=== PATIENT | female | born 1945 | race Caucasian/White ===

== ENCOUNTER → 2018-10-03 08:28 | Outpatient (ROUT) | payer SELFPAY ==
[2018-10-03 09:33] LABS: Add Manual Diff / Slide Review NO; Basophils Absolute Auto 0 /uL (0-100); Basophils Percent Auto 0.5 % (0-2); Eosinophils Absolute Auto 200 /uL (0-450); Eosinophils Percent Auto 1.9 % (2-4); Hematocrit 40.1 % (36-46); Hemoglobin 13.3 g/dL (12.0-16.0); Lymphocytes Absolute Auto 2000 /uL (1100-4500); Lymphocytes Percent Auto 20.6 % (25-40); Mean Corpuscular HGB Conc 33.1 % (30-36); Mean Corpuscular Hemoglobin 30.5 PG (26-34); Mean Corpuscular Volume 92.2 fL (80-100); Monocytes Absolute Auto 800 /uL (0-900); Monocytes Percent Auto 8.5 % (3-14); Neutrophils Absolute Auto 6500 /uL (1500-7000); Neutrophils Percent Auto 68.5 % (50-75); Platelet Count 197 X10^3/uL (150-400); Red Blood Cell Count 4.35 X10^6/uL (4.0-5.2); Red Cell Distribution Width 13.8 % (11.6-14.8); White Blood Cell Count 9.5 X10^3/uL (4.5-11.0)
[2018-10-03 09:56] LABS: Blood Urea Nitrogen 27 mg/dL (7-17); Calcium 9.3 mg/dL (8.4-10.2); Carbon Dioxide 26 mmol/L (22-32); Chloride 109 mmol/L (98-107); Estimated Glomerular Filt Rate > 60.0 mL/min (>60); Glucose 150 mg/dL (80-110); HEMOLYSIS < 15 (0-50); Potassium 4.5 mmol/L (3.4-5.1); Sodium 144 mmol/L (137-145)
== END ==
PROVIDERS: Visit Provider Internal Medicine
DX: I63.9 Cerebral infarction, unspecified (principal)
CPT/HCPCS: 36415; 80048; 85025

== ENCOUNTER → 2018-10-10 09:09 | Outpatient (ROUT) | payer SELFPAY ==
[2018-10-10 11:20] LABS: Add Manual Diff / Slide Review NO; Basophils Absolute Auto 100 /uL (0-100); Basophils Percent Auto 1.4 % (0-2); Eosinophils Absolute Auto 200 /uL (0-450); Eosinophils Percent Auto 3.2 % (2-4); Hematocrit 39.3 % (36-46); Hemoglobin 13.5 g/dL (12.0-16.0); Lymphocytes Absolute Auto 1900 /uL (1100-4500); Lymphocytes Percent Auto 36.9 % (25-40); Mean Corpuscular HGB Conc 34.2 % (30-36); Mean Corpuscular Hemoglobin 30.7 PG (26-34); Mean Corpuscular Volume 89.7 fL (80-100); Monocytes Absolute Auto 500 /uL (0-900); Monocytes Percent Auto 9.4 % (3-14); Neutrophils Absolute Auto 2600 /uL (1500-7000); Neutrophils Percent Auto 49.1 % (50-75); Platelet Count 185 X10^3/uL (150-400); Red Blood Cell Count 4.38 X10^6/uL (4.0-5.2); Red Cell Distribution Width 13.5 % (11.6-14.8); White Blood Cell Count 5.2 X10^3/uL (4.5-11.0)
[2018-10-10 11:21] LABS: Blood Urea Nitrogen 36 mg/dL (7-17); Calcium 9.9 mg/dL (8.4-10.2); Carbon Dioxide 28 mmol/L (22-32); Chloride 106 mmol/L (98-107); Estimated Glomerular Filt Rate > 60.0 mL/min (>60); Glucose 102 mg/dL (80-110); HEMOLYSIS < 15 (0-50); Potassium 4.6 mmol/L (3.4-5.1); Sodium 143 mmol/L (137-145)
== END ==
PROVIDERS: Visit Provider Internal Medicine
DX: I63.9 Cerebral infarction, unspecified (principal); R53.1 Weakness; C18.9 Malignant neoplasm of colon, unspecified; J44.9 Chronic obstructive pulmonary disease, unspecified
CPT/HCPCS: 36415; 80048; 85025

== ENCOUNTER 2018-11-13 09:21 | Observation (INO) | payer MEDICARE, MEDICAID, SELFPAY ==
[2018-11-13] VITALS (13 sets, daily range): BP systolic 108–154; BP diastolic 60–76; PULSE 73–87; RESP 13–20; TEMP 35.9–36.9; O2SAT 94–100; BMI 22.8
--- NOTE | 2018-11-13 09:33 | ED_ITS ---
HPI - Nausea/Vomiting/Diarrhea General Chief complaint: Nausea/Vomiting/Diarrhea Stated complaint: Diarrhea, coffee ground emesis Time Seen by Provider: 11/13/18 09:23 Source: patient and EMS Mode of arrival: EMS Limitations: no limitations History of Present Illness HPI Narrative: 73F former smoker/drinker with recent stroke presents from local SNF for evaluation of diarrhea and coffee ground emesis today with some generalized abdominal discomfort. She was started on Plavix as a consequence of her recent stroke. She denies any history of GI bleeding and has never had any EGD. She denies any bright red emesis or dark tarry stools. She is not dizzy nor weak or lightheaded but generally feels unwell. She denies any fever chills nor chest pain. Her stroke left her with a left-sided deficit. She was seen and evaluated at [facility]. During this visit she was apparently on C Diff precautions but was never able to produce a sample MD complaint: nausea, vomiting, diarrhea and abdominal pain Onset (ago): hour(s) Description of Vomiting: coffee grounds Description of Diarrhea: watery Associated Abdominal Pain: Yes Location of pain: diffuse Severity: moderate Quality: cramping Relieving factors: none Exacerbating factors: none Context: alcohol abuse and other Related Data Home Medications Medication Instructions Recorded Confirmed dextran 70-hypromellose (PF) 1 drp EYE-BOTH QID 11/13/18 11/13/18 [Artificial Tears (PF)] escitalopram oxalate 10 mg PO DAILY 11/13/18 11/13/18 mirtazapine 15 mg PO DAILY 11/13/18 11/13/18 Allergies Allergy/AdvReac Type Severity Reaction Status Date / Time codeine Allergy Verified 11/13/18 09:42 ibuprofen Allergy Verified 11/13/18 09:42 oxycodone Allergy Verified 11/13/18 09:42 pseudoephedrine Allergy Verified 11/13/18 09:42 [From Sudafed] Sulfa (Sulfonamide Allergy Verified 11/13/18 09:42 Antibiotics) Review of Systems Constitutional Denies chills, Denies fever(s), Denies lethargy and Denies weakness Eyes Denies change in vision, Denies eye discharge, Denies irritation and Denies loss of vision ENT Ears, Nose, Mouth, and Throat: Denies change in voice, Denies neck pain and Denies sore throat Cardiovascular Denies chest pain, Denies irregular heart rhythm, Denies lightheadedness, Denies palpitations, Denies dyspnea, Denies dyspnea on exertion and Denies orthopnea Respiratory Denies cough, Denies dyspnea, Denies dyspnea on exertion and Denies wheezing Gastrointestinal Gastrointestinal: Reports abdominal pain, Denies change in bowel habits, Reports coffee ground emesis, Reports diarrhea, Reports nausea and Reports vomiting Genitourinary Denies hematuria, Denies flank pain, Denies urinary incontinence and Denies urinary urgency Musculoskeletal Denies neck pain Integumentary/Breasts Denies pruritus, Denies erythema, Denies rash and Denies wounds Neurologic Denies confusion, Denies loss of vision and Denies weakness Psychiatric Denies anxiety, Denies confusion, Denies depression, Denies homicidal ideation and Denies suicidal ideation Endocrine Denies palpitations Hematologic/Lymphatic Denies easy bruising Allergic/Immunologic Denies wheezing [facility] Medical History (Updated 11/13/18 @ 11:00 by Abebe Trejo DO) Stroke (Acute) Social History (Updated 11/13/18 @ 09:39 by Abebe Trejo DO) Smoking Status: Former smoker alcohol intake: former Social History (Updated 11/13/18 @ 09:39 by Abebe Trejo DO) Smoking Status: Former smoker alcohol intake: former Exam Narrative Exam Narrative: GENERAL: [73] year old patient appears stated age. Well- nourished, well-developed patient, in mild distress. HEAD: Atraumatic. Normocephalic. EYES: Pupils equal round and reactive. Extraocular motions intact. No scleral icterus. No injection or drainage. ENT: Dry mucous membranes. Nose without bleeding, purulent drainage. Throat without erythema, tonsillar hypertrophy or exudate. Airway patent. NECK: Trachea midline. Non tender CARDIOVASCULAR: Regular rate and rhythm without murmurs, gallops, or rubs. RESPIRATORY: Clear to auscultation. Breath sounds equal bilaterally. No wheezes, rales, or rhonchi. GASTROINTESTINAL: Abdomen soft, non-tender, nondistended. EXTREMITIES: No edema or joint tenderness. Left upper and lower extremity weakness BACK: Nontender without deformity or crepitance. No flank tenderness. NEURO: AOx3. SKIN: No rash or erythema of visible areas Initial Vital Signs Initial Vital Signs: Vital Signs Temperature 97.3 F L 11/13/18 09:26 Pulse Rate 87 11/13/18 09:26 Respiratory Rate 17 11/13/18 09:26 Blood Pressure 154/70 H 11/13/18 09:26 Pulse Oximetry 100 11/13/18 09:26 Course Course Narrative: Sparks-Blatchford Bleeding Score (GBS) from [email or web address] on 11/13/2018 All calculations should be rechecked by clinician prior to use RESULT SUMMARY: 4 points A GBS greater than zero suggests a ?High Risk? GI bleed that is likely to require ?medical intervention?: transfusion, endoscopy, or surgery. A higher GBS also correlated with a higher likelihood of needing intervention (scores ?6 are associated with >50% risk of needing intervention) INPUTS: Hemoglobin ?> 13.9 g/dL BUN ?> 28 mg/dL Initial systolic BP ?> 125 mm Hg Sex ?> 1 = Female Heart rate ?100 ?> 0 = No Melena present ?> 0 = No Recent syncope ?> 0 = No Hepatic disease history ?> 0 = No Cardiac failure present ?> 0 = No Orders Ordered: ED Orders 11/13/18 09:15 Complete Blood Count AUTO DIFF Stat Comprehensive Metabolic Panel Stat Partial Thromboplastin Time Stat Prothrombin Time INR Stat 11/13/18 09:23 GI Panel (Film Array) Stat 11/13/18 09:25 Type and Screen Stat Sodium Chloride (Normal Saline 0.9%) 500 mls @ 1,000 mls/hr IV BOLUS ONE Stop: 11/13/18 11:18 Last Admin: 11/13/18 10:56 Dose: 1,000 mls/hr Discontinued Medications Ondansetron HCl (Zofran) 4 mg IV NOW ONE Stop: 11/13/18 09:24 Last Admin: 11/13/18 09:39 Dose: 4 mg Pantoprazole Sodium (Protonix) 80 mg IV NOW ONE Stop: 11/13/18 09:24 Last Admin: 11/13/18 09:39 Dose: 80 mg Reevaluation(s) Reevaluation #1: call to Dr. Bangura regarding likely upcoming EGD. He is happy to be involved in patient's care, suggests PPI drip and asks for official consult from medicine service Reevaluation #2: call to hospitalist. happy to accept Time: 10:50 Vital Signs - 8 hr 11/13/18 09:26 11/13/18 09:55 11/13/18 10:10 Temperature 97.3 F L Pulse Rate 87 85 85 Respiratory Rate 17 15 13 Blood Pressure 154/70 H Blood Pressure [Left Arm] 152/65 H 139/60 Pulse Oximetry 100 97 97 11/13/18 10:59 Temperature Pulse Rate 83 Respiratory Rate 15 Blood Pressure Blood Pressure [Left Arm] 125/69 Pulse Oximetry 96 MDM - Nausea/Vomiting/Diarrhea Lab Data Result diagrams: 11/13/18 09:15 11/13/18 09:15 Lab Results 11/13/18 11/13/18 11/13/18 Range/Units 09:15 09:15 09:15 WBC 8.0 (4.5-11.0) X10^3/uL RBC 4.41 (4.0-5.2) X10^6/uL Hgb 13.5 (12.0-16.0) g/dL Hct 39.4 (36-46) % MCV 89.2 (80-100) fL MCH 30.5 (26-34) PG MCHC 34.2 (30-36) % RDW 14.1 (11.6-14.8) % Plt Count 200 (150-400) X10^3/uL Neut % (Auto) 66.9 (50-75) % Lymph % (Auto) 20.3 L (25-40) % Stevens % (Auto) 10.4 (3-14) % Eos % (Auto) 1.8 L (2-4) % Baso % (Auto) 0.6 (0-2) % Neut # (Auto) 5300 (0887-4718) /uL Lymph # (Auto) 1600 (2878-3476) /uL Stevens # (Auto) 800 (0-900) /uL Eos # (Auto) 100 (0-450) /uL Baso # (Auto) 0 (0-100) /uL PT 10.7 (10.1-12.7) SECONDS INR 0.9 (0.9-1.3) APTT 33 (26.4-36.2) SECONDS Sodium 141 (137-145) mmol/L Potassium 4.1 (3.4-5.1) mmol/L Chloride 107 (98-107) mmol/L Carbon Dioxide 24 (22-32) mmol/L BUN 31 H (7-17) mg/dL Creatinine 1.10 H (0.52-1.04) mg/dL Estimated GFR 48.8 L (>60) mL/min BUN/Creatinine Ratio 28.2 H (6-22) Glucose 97 (80-110) mg/dL Calcium 9.9 (8.4-10.2) mg/dL Total Bilirubin 0.5 (0.2-1.3) mg/dL AST 52 H (14-36) IU/L ALT 75 H (9-52) IU/L Alkaline Phosphatase 90 (38-126) U/L Total Protein 6.8 (6.3-8.2) g/dL Albumin 4.1 (3.5-5.0) g/dL Globulin 2.7 (1.7-4.1) g/dL Albumin/Globulin Ratio 1.5 (1.0-2.8) Blood Type Antibody Screen 11/13/18 Range/Units 09:25 WBC (4.5-11.0) X10^3/uL RBC (4.0-5.2) X10^6/uL Hgb (12.0-16.0) g/dL Hct (36-46) % MCV (80-100) fL MCH (26-34) PG MCHC (30-36) % RDW (11.6-14.8) % Plt Count (150-400) X10^3/uL Neut % (Auto) (50-75) % Lymph % (Auto) (25-40) % Stevens % (Auto) (3-14) % Eos % (Auto) (2-4) % Baso % (Auto) (0-2) % Neut # (Auto) (0615-9236) /uL Lymph # (Auto) (4556-6754) /uL Stevens # (Auto) (0-900) /uL Eos # (Auto) (0-450) /uL Baso # (Auto) (0-100) /uL PT (10.1-12.7) SECONDS INR (0.9-1.3) APTT (26.4-36.2) SECONDS Sodium (137-145) mmol/L Potassium (3.4-5.1) mmol/L Chloride (98-107) mmol/L Carbon Dioxide (22-32) mmol/L BUN (7-17) mg/dL Creatinine (0.52-1.04) mg/dL Estimated GFR (>60) mL/min BUN/Creatinine Ratio (6-22) Glucose (80-110) mg/dL Calcium (8.4-10.2) mg/dL Total Bilirubin (0.2-1.3) mg/dL AST (14-36) IU/L ALT (9-52) IU/L Alkaline Phosphatase (38-126) U/L Total Protein (6.3-8.2) g/dL Albumin (3.5-5.0) g/dL Globulin (1.7-4.1) g/dL Albumin/Globulin Ratio (1.0-2.8) Blood Type O Positive Antibody Screen Negative Discharge Plan Departure Patient Disposition: Admitted as Observation Clinical Impression: Dehydration, Acute GI bleeding
[2018-11-13 09:38] LABS: Add Manual Diff / Slide Review NO; Basophils Absolute Auto 0 /uL (0-100); Basophils Percent Auto 0.6 % (0-2); Eosinophils Absolute Auto 100 /uL (0-450); Eosinophils Percent Auto 1.8 % (2-4); Hematocrit 39.4 % (36-46); Hemoglobin 13.5 g/dL (12.0-16.0); Lymphocytes Absolute Auto 1600 /uL (1100-4500); Lymphocytes Percent Auto 20.3 % (25-40); Mean Corpuscular HGB Conc 34.2 % (30-36); Mean Corpuscular Hemoglobin 30.5 PG (26-34); Mean Corpuscular Volume 89.2 fL (80-100); Monocytes Absolute Auto 800 /uL (0-900); Monocytes Percent Auto 10.4 % (3-14); Neutrophils Absolute Auto 5300 /uL (1500-7000); Neutrophils Percent Auto 66.9 % (50-75); Platelet Count 200 X10^3/uL (150-400); Red Blood Cell Count 4.41 X10^6/uL (4.0-5.2); Red Cell Distribution Width 14.1 % (11.6-14.8)
[2018-11-13] MEDS: PANTOPRAZOLE 40 MG VIAL 80 MG IV (09:39)
[2018-11-13] MEDS: ONDANSETRON 4 MG/2 ML INJ IV (09:39)
[2018-11-13 09:44] LABS: INR 0.9 (0.9-1.3); Prothrombin Time 10.7 SECONDS (10.1-12.7)
[2018-11-13 09:47] LABS: PTT Partial Thromboplastin Tim 33 SECONDS (26.4-36.2)
[2018-11-13 09:49] LABS: Alanine Aminotransferase 75 IU/L (9-52); Albumin 4.1 g/dL (3.5-5.0); Albumin Globulin Ratio 1.5 (1.0-2.8); Alkaline Phosphatase 90 U/L (38-126); Aspartate Aminotransferase 52 IU/L (14-36); BUN Creatinine Ratio 28.2 (6-22); Bilirubin Total 0.5 mg/dL (0.2-1.3); Blood Urea Nitrogen 31 mg/dL (7-17); Calcium 9.9 mg/dL (8.4-10.2); Carbon Dioxide 24 mmol/L (22-32); Chloride 107 mmol/L (98-107); Estimated Glomerular Filt Rate 48.8 mL/min (>60); Globulin 2.7 g/dL (1.7-4.1); Glucose 97 mg/dL (80-110); HEMOLYSIS < 15 (0-50); Potassium 4.1 mmol/L (3.4-5.1); Sodium 141 mmol/L (137-145); Total Protein 6.8 g/dL (6.3-8.2)
[2018-11-13] MEDS: SODIUM CHLORIDE 0.9% 500 ML 1000 ML IV (10:56)
[2018-11-13] MEDS: SODIUM CHLORIDE 0.9% 1,000 ML 75 ML IV (12:48)
[2018-11-13 12:54] LABS: Adenovirus F 40/41 Not Detected (Not Detect); Astrovirus Not Detected (Not Detect); Campylobacter Not Detected (Not Detect); Clostridium difficile toxin AB Not Detected (Not Detect); Cryptosporidium Not Detected (Not Detect); Cyclospora cayetanensis Not Detected (Not Detect); Entamoeba histolytica Not Detected (Not Detect); Enteroaggregative E.coli Not Detected (Not Detect); Enteropathogenic E.coli Not Detected (Not Detect); Enterotoxigenic E.coli It/st Not Detected (Not Detect); Giardia lamblia Not Detected (Not Detect); Norovirus GI/GII Not Detected (Not Detect); Plesiomonsa shigelloides Not Detected (Not Detect); Rotavirus A Not Detected (Not Detect); Salmonella Not Detected (Not Detect); Shiga-like toxin-prod E.coli Not Detected (Not Detect); Shigella/Enteroinvasive E.coli Not Detected (Not Detect); Vibrio Not Detected (Not Detect); Vibrio cholerae Not Detected (Not Detect); Yersinia enterocolitica Not Detected (Not Detect)
--- NOTE | 2018-11-13 14:10 | PM.HP.1 ---
History of Present Illness Date Patient Seen: 11/13/18 Chief complaint: Diarrhea, coffee ground emesis Narrative: Savana Chen is a 73-year-old female with a past medical history significant for multiple and recent (09/06/18) CVA with residual left-sided hemiparesis, dysphagia, and dementia; diabetes mellitus type 2, insulin using, depression, COPD, and peptic ulcer disease who presented for nausea, vomiting, diarrhea, and 1 episode of coffee-ground emesis. Due to the patients dementia the patient is a poor historian so the majority of the HPI was gathered from her daughter. The patient's daughter reports that in September she had a massive CVA with residual left-sided hemiparesis in [place] at [facility]. She had previously been on aspirin for previous CVA and Plavix was added in addition. She has been at [facility] for a trial of rehabilitation as her daughter lives here in [place]. The patient's daughter reports that she has slowly declined since her CVA in September. She has a poor appetite and decreased PO intake, she has dysphagia due to CVA requiring thickened liquids which she significantly dislikes, she has lost a significant amount of weight since her CVA of approximately 10-15 lbs, she has failed rehabilitation and is now bed bound. Due to her circumstances the patient has been quite depressed and was recently started on escitalopram and mirtazapine. Her daughter has discussed hospice and obtained an informational visit recently. The patient has also been having reportedly intermittent nausea, vomiting and diarrhea over the last 3 weeks. The patient reports that she has been recently started on metformin with titration up to a 1000 mg twice daily. GI panel in the ED was negative for infectious diarrhea. This morning she had an episode of coffee ground emesis prompting her to be taken to the ED. Her hemoglobin and hematocrit are stable and unchanged compared to 1 month ago. She denies headache, chest pain, shortness of breath, abdominal pain, epigastric pain, nausea, vomiting, fever, chills, dysuria, or constipation. She endorses chronic constipation all her life but now has had loose stool recently with intermittent nausea and vomiting. She is unable to tell me the frequency of her bowel movements or emesis. She has had no recurrence of coffee-ground emesis. Patient was admitted for observation. [facility] was contacted and the nurse reports that the patient had loose watery stool on 8/5-11/09. She was then given Imodium and did not have a bowel movement for 2 days on 11/10 and 11/11. She then had 3 loose watery BM's on 11/12 and 1 loose BM today 11/13. She also had the episode of coffee ground emesis this morning. In regard to vomitting the patient had a couple episodes on 11/07-11/09 but minimal. Patient History Medical History (Updated 11/13/18 @ 16:51 by Yvette Gonzalez DO) Abnormal colonoscopy (Acute) Alcoholism in remission (Acute) CVA (cerebral vascular accident) (Acute) Colon polyps (Acute) Dementia (Acute) Diabetes mellitus type 2 in nonobese (Acute) Dysphagia as late effect of cerebrovascular accident (CVA) (Acute) Gout (Acute) Hard of hearing (Acute) Hemiparesis affecting left side as late effect of cerebrovascular accident (CVA) (Acute) Peptic ulcer disease (Acute) Stroke (Acute) TIA (transient ischemic attack) (Acute) Tobacco dependence (Acute) Surgical History (Updated 11/13/18 @ 14:50 by Yvette Gonzalez DO) H/O hysterectomy with oophorectomy (Acute) History of back surgery (Acute) Family History (Updated 11/13/18 @ 14:55 by Yvette Gonzalez DO) Mother Alcoholism Father No problems noted. Brother Stomach cancer Sister Heart attack Social History (Updated 11/13/18 @ 09:39 by Abebe Trejo DO) household members: other Smoking Status: Former smoker alcohol intake: former Family & Social History Social History: household members family,children Prior Living Arrangements House Safety & Behavioral: Feels Safe in Current Yes Environment Been Physically Hurt or No Threatened By a Person Suicidal Ideation Description None Suicide Plan Description No Plan Tobacco & Substance use: Smoking Status Former smoker, 1 ppd x 56 years, quit 09/06/18 due to CVA alcohol intake former alcoholic, quit 15 years ago Substance Use Type does not use Meds Home Medications Medication Instructions Recorded Confirmed Type Artificial Tears (PF) 1 drp EYE-BOTH QID 11/13/18 11/13/18 History Fleet Enema 118 ml VA DAILY PRN 11/13/18 11/13/18 History Lantus Solostar U-100 Insulin 14 units SUBCUT DAILY 11/13/18 11/13/18 History Maalox Maximum Strength 15 ml PO Q4-6H PRN 11/13/18 11/13/18 History acetaminophen 650 mg PO Q4H PRN 11/13/18 11/13/18 History atorvastatin 80 mg PO BEDTIME 11/13/18 11/13/18 History benzonatate 200 mg PO TID PRN 11/13/18 11/13/18 History bisacodyl 10 mg VA DAILY PRN 11/13/18 11/13/18 History bisacodyl [Dulcolax (bisacodyl)] 10 mg PO PRN PRN 11/13/18 11/13/18 History calcium carbonate [Tums] 200 mg PO PRN PRN 11/13/18 11/13/18 History carvedilol 1.5625 mg PO BID 11/13/18 11/13/18 History clopidogrel 75 mg PO DAILY 11/13/18 11/13/18 History colchicine 0.6 mg PO BID 11/13/18 11/13/18 History cyclobenzaprine 10 mg PO BID PRN 11/13/18 11/13/18 History dextrose [Glucose Gel] 15 g PO Q15M PRN 11/13/18 11/13/18 History docusate sodium 100 mg PO PRN PRN 11/13/18 11/13/18 History escitalopram oxalate 10 mg PO DAILY 11/13/18 11/13/18 History glipizide 5 mg PO DAILY 11/13/18 11/13/18 History ipratropium-albuterol 3 ml INHALATION Q4-6H PRN 11/13/18 11/13/18 History magnesium hydroxide [Milk of 30 ml PO BEDTIME PRN 11/13/18 11/13/18 History Magnesia] melatonin 3 mg PO BEDTIME PRN 11/13/18 11/13/18 History mirtazapine 15 mg PO DAILY 11/13/18 11/13/18 History ondansetron 4 mg PO Q4-6H PRN 11/13/18 11/13/18 History polyethylene glycol 3350 17 g PO DAILY PRN 11/13/18 11/13/18 History ranitidine HCl 150 mg PO BID 11/13/18 11/13/18 History sennosides [senna] 8.6 mg PO DAILY PRN 11/13/18 11/13/18 History metoclopramide HCl 5 mg PO TID PRN #90 tab 11/14/18 Rx nicotine 7 mg TOPICAL DAILY #30 ea 11/14/18 Rx pantoprazole 40 mg PO BID #60 tab 11/14/18 11/13/18 Rx Allergies Allergy/AdvReac Type Severity Reaction Status Date / Time codeine Allergy Verified 11/13/18 09:42 ibuprofen Allergy Verified 11/13/18 09:42 oxycodone Allergy Verified 11/13/18 09:42 pseudoephedrine Allergy Verified 11/13/18 09:42 [From Sudafed] Sulfa (Sulfonamide Allergy Verified 11/13/18 09:42 Antibiotics) Review of Systems Review of Systems A 10 system comprehensive review of systems was conducted with the patient and found to be negative except as above in the History of Present Illness. Exam Vital Signs (past 8 hours): - 11/13/18 09:26 11/13/18 09:55 11/13/18 10:10 Temperature 97.3 F L Pulse Rate 87 85 85 Respiratory Rate 17 15 13 Blood Pressure 154/70 H Blood Pressure [Left Arm] 152/65 H 139/60 Pulse Oximetry 100 97 97 11/13/18 10:59 11/13/18 11:32 11/13/18 11:41 Temperature 96.6 F L Pulse Rate 83 74 73 Respiratory Rate 15 17 16 Blood Pressure 143/75 H Blood Pressure [Left Arm] 125/69 139/62 Pulse Oximetry 96 96 94 Oxygen Delivery Method Room Air Narrative Exam Narrative: General: Elderly thin female sitting in bed comfortably and in no acute distress, appears older than stated age, moderate dementia with short-term memory recall deficit but otherwise appropriately interactive. HEENT: Normocephalic, atraumatic. External ears without defect. Pupils equal, round, and reactive to light. Anicteric sclerae, moist conjunctivae, and no lid lag. Oropharynx free of erythema and cobble stoning. Oral mucosa dry. Hard of hearing Neck: Supple with full range of motion. No jugular venous distension. No bruits. No lymphadenopathy or thyromegaly. Cardiovascular: Regular rate and rhythm without murmurs, rubs, or gallops appreciated. Pulmonary: Clear to auscultation bilaterally without crackles, wheezes, or rhonchi. Normal respiratory effort with no use of accessory muscles. Abdomen: Soft, bowel sounds present, non-tender other than mild suprapubic tenderness, non-distended. No hepatosplenomegaly or masses appreciated. Extremities: No clubbing, cyanosis, or edema. Skin: Normal temperature and texture, poor turgor; no rash, ulcers, or subcutaneous nodules appreciated. Neurological: Chronic left sided hemiparesis with intact sensation. Psychiatric: Depressed mood and flat affect. Alert and oriented to person and place. Moderate dementia with short-term memory recall deficit. Objective Labs Result Diagrams: 11/14/18 09:15 11/14/18 09:15 Labs: Laboratory Results - last 24 hr 11/13/18 11/13/18 11/13/18 09:15 09:15 09:15 WBC 8.0 RBC 4.41 Hgb 13.5 Hct 39.4 MCV 89.2 MCH 30.5 MCHC 34.2 RDW 14.1 Plt Count 200 Neut % (Auto) 66.9 Lymph % (Auto) 20.3 L Jerome % (Auto) 10.4 Eos % (Auto) 1.8 L Baso % (Auto) 0.6 Neut # (Auto) 5300 Lymph # (Auto) 1600 Jerome # (Auto) 800 Eos # (Auto) 100 Baso # (Auto) 0 PT 10.7 INR 0.9 APTT 33 Sodium 141 Potassium 4.1 Chloride 107 Carbon Dioxide 24 BUN 31 H Creatinine 1.10 H Estimated GFR 48.8 L BUN/Creatinine Ratio 28.2 H Glucose 97 Calcium 9.9 Total Bilirubin 0.5 AST 52 H ALT 75 H Alkaline Phosphatase 90 Total Protein 6.8 Albumin 4.1 Globulin 2.7 Albumin/Globulin Ratio 1.5 Stl C. cayetanensis PCR Stool Rotavirus (PCR) Stool Adenovirus (PCR) Stool Astrovirus (PCR) Stool Cryptosporidium PCR Stl E.coli Shiga Tox PCR St Sh/Enteroin Ecoli PCR Stool E coli O157 PCR Stl Enterotoxigenic E PCR Stool EPEC (PCR) Stl E. histolytica PCR Stool Giardia Lamblia PCR Stl P. shigelloides PCR St Y.enterocolitica PCR Stool Vibrio (PCR) Stl Vibrio cholerae PCR Stl Enteroaggr Ecoli PCR Stl Norovirus GI/GII PCR Campylobacter (PCR) C. difficile Tox (PCR) Salmonella (PCR) Blood Type Antibody Screen 08/11/19 08/11/19 09:25 11:27 WBC RBC Hgb Hct MCV MCH MCHC RDW Plt Count Neut % (Auto) Lymph % (Auto) Jerome % (Auto) Eos % (Auto) Baso % (Auto) Neut # (Auto) Lymph # (Auto) Jerome # (Auto) Eos # (Auto) Baso # (Auto) PT INR APTT Sodium Potassium Chloride Carbon Dioxide BUN Creatinine Estimated GFR BUN/Creatinine Ratio Glucose Calcium Total Bilirubin AST ALT Alkaline Phosphatase Total Protein Albumin Globulin Albumin/Globulin Ratio Stl C. cayetanensis PCR Not detected Stool Rotavirus (PCR) Not detected Stool Adenovirus (PCR) Not detected Stool Astrovirus (PCR) Not detected Stool Cryptosporidium PCR Not detected Stl E.coli Shiga Tox PCR Not detected St Sh/Enteroin Ecoli PCR Not detected Stool E coli O157 PCR Not Reportable Stl Enterotoxigenic E PCR Not detected Stool EPEC (PCR) Not detected Stl E. histolytica PCR Not detected Stool Giardia Lamblia PCR Not detected Stl P. shigelloides PCR Not detected St Y.enterocolitica PCR Not detected Stool Vibrio (PCR) Not detected Stl Vibrio cholerae PCR Not detected Stl Enteroaggr Ecoli PCR Not detected Stl Norovirus GI/GII PCR Not detected Campylobacter (PCR) Not detected C. difficile Tox (PCR) Not detected Salmonella (PCR) Not detected Blood Type O Positive Antibody Screen Negative Assessment & Plan Assessment & Plan narrative: Savana Chen is a 73-year-old female with a past medical history significant for multiple and recent (09/06/18) CVA with residual left-sided hemiparesis, dysphagia, and dementia; diabetes mellitus type 2, insulin using, depression, COPD, and peptic ulcer disease who presented for nausea, vomiting, diarrhea, and 1 episode of coffee-ground emesis. 1. Episode of coffee-ground emesis, not present on admission. Active. -Patient has had occasional episode of nausea and vomiting at group home facility and per nursing staff it has been minimal in quantity. The patient had one episode of coffee ground emesis prior to admission. No history of previous GI bleed or previous coffee ground emesis, hematemesis, hematochezia, or melena. Patient is currently on NSAIDs with aspirin and meloxicam daily. In addition to aspirin she is also on Plavix for stroke prophylaxis which increases her risk of bleeding. -Initial hemoglobin 13.5 and hematocrit 39.4 which is unchanged from baseline 1 month ago. -Differential diagnosis includes: Gastritis versus NSAID induced PUD versus gastroparesis versus Oxana-Somers tear versus non-bloody emesis. -Ordered respiratory viral PCR, pending. -Ordered H. pylori stool antigen which are send out tests and will take several days to return. -Continue to monitor closely for nausea and vomiting. Ordered Zofran 4 mg IV every 6 hours as needed for nausea. -Continue to monitor hemoglobin and hematocrit closely. -Discontinued aspirin and meloxicam. Held Plavix and plan to restart Plavix for stroke prophylaxis if patient is stable and does not have any signs of bleeding. -Continue IV fluids for mild dehydration with normal saline at 75 mL/hr and will expect blood counts to decrease to some degree. -Ordered Protonix 40 mg twice daily and ranitidine 150 mg twice daily. -Ordered nuclear medicine gastric emptying study, pending. 2. Acute diarrhea, present on admission. Active. -Patient reports 3 weeks of nausea, vomiting, and diarrhea, however, she is a poor historian [facility] has had several episodes of loose stool over the last 1 week. -Patient has not had substantial GI losses as her electrolytes are within normal limits and at the higher end of normal. Also of note, the patient reports chronic constipation her life making encoparesis a possibility. -Differential diagnosis includes: Drug-induced from metformin (recently titrating up) versus encoparesis. Less likely cause would be ova and parasite. Infectious diarrhea ruled out. -GI stool panel negative for infectious diarrhea. -Ordered ova and parasite which is a send out test and will take several days to return. -Ordered Imodium 4 mg every 6 hours as needed for significant loose watery diarrhea. -Ordered KUB to rule out chronic constipation with encopresis. -Held and consider discontinuing metformin indefinitely as this medication has a significant propensity for diarrhea and may be the cause of her diarrhea. 3. Acute kidney injury, present on admission. Active. -Likely prerenal azotemia related to dehydration from decreased PO intake and mild GI losses from nausea, vomiting and diarrhea. -Initial creatinine 1.10. Baseline creatinine 0.80. -Received 1 L NS bolus in ED. Continue IV fluids with normal saline at 75 mL/hr. -Avoid nephrotoxic agents. -Continue to monitor renal function daily. 4. Recent CVA with residual left-sided hemiparesis, dysphagia, and dementia, present on admission. Active. -Patient has been failing to thrive due to recent CVA and has failed rehabilitation and has been losing weight. Patient's daughter is leaning towards comfort care with hospice in the near future. -Ordered PT/OT/ST evaluation and treatment, pending. -Held aspirin and Plavix as above. -Continue atorvastatin 80 mg daily at bedtime. 5. Diabetes mellitus type 2, insulin using, present on admission. Stable. -Unclear baseline glycemic control. Ordered hemoglobin A1c, pending. -Held oral anti hyperglycemics including glipizide and metformin. Consider discontinuing metformin indefinitely as this medication has a significant propensity for diarrhea and may be the cause of her diarrhea. -Continue Lantus 14 units daily. -Continue ACHS blood glucose and low-dose correctional scale. 6. Transaminitis, acuity unclear, present on admission. Stable. -Likely chronic and related to fatty liver. Patient also has a history of alcoholism (quit 15 years ago) with likely alcohol induced injury and underlying disease. -Initial AST 52 and ALT 75, mild elevation. -Continue to monitor LFTs daily. 7. COPD not in acute exacerbation, present on admission. Stable. -Continue as needed DuoNeb every 4-6 hours for shortness of breath. 8. Depression, chronic, present on admission. Stable. -Continue escitalopram 10 mg daily and mirtazapine 15 mg daily at bedtime. 9. GERD, chronic, present on admission. Stable. -Continue Protonix 40 mg twice daily and ranitidine 150 mg twice daily. 10. Tobacco dependence, chronic, present on admission. Stable. -Continue nicotine patch 7 mg daily for nicotine withdrawal. 11. Gout, chronic, present on admission. Stable. -Continue colchicine 0.6 mg twice daily. Patient is admitted under observation status with expected length of stay less than 2 midnights due to severity of presenting symptoms, risk of adverse event, and complexity of treatment plan. Quality VTE Deep Vein Thrombosis/Pulmonary Embolism Present on Admission: No
--- NOTE | 2018-11-13 14:14 | P.HP_ITS ---
History of Present Illness Date Patient Seen: 11/13/18 Chief complaint: Diarrhea, coffee ground emesis Narrative: Savana Chen is a 73-year-old female with a past medical history significant for multiple and recent (09/06/18) CVA with residual left-sided hemiparesis, dysphagia, and dementia; diabetes mellitus type 2, insulin using, depression, COPD, and peptic ulcer disease who presented for nausea, vomiting, diarrhea, and 1 episode of coffee-ground emesis. Due to the patients dementia the patient is a poor historian so the majority of the HPI was gathered from her daughter. The patient's daughter reports that in September she had a massive CVA with residual left-sided hemiparesis in [place] at [facility]. She had previously been on aspirin for previous CVA and Plavix was added in addition. She has been at [facility] for a trial of rehabilitation as her daughter lives here in [place]. The patient's daughter reports that she has slowly declined since her CVA in September. She has a poor appetite and decreased PO intake, she has dysphagia due to CVA requiring thickened liquids which she significantly dislikes, she has lost a significant amount of weight since her CVA of approxim ately 10-15 lbs, she has failed rehabilitation and is now bed bound. Due to her circumstances the patient has been quite depressed and was recently started on escitalopram and mirtazapine. Her daughter has discussed hospice and obtained an informational visit recently. The patient has also been having reportedly intermittent nausea, vomiting and diarrhea over the last 3 weeks. The patient reports that she has been recently started on metformin with titration up to a 1000 mg twice daily. GI panel in the ED was negative for infectious diarrhea. This morning she had an episode of coffee ground emesis prompting her to be taken to the ED. Her hemoglobin and hematocrit are stable and unchanged compared to 1 month ago. She denies headache, chest pain, shortness of breath, abdominal pain, epigastric pain, nausea, vomiting, fever, chills, dysuria, or constipation. She endorses chronic constipation all her life but now has had loose stool recently with intermittent nausea and vomiting. She is unable to tell me the frequency of her bowel movements or emesis. She has had no recurrence of coffee-ground emesis. Patient was admitted for observation. [facility] was contacted and the nurse reports that the patient had loose watery stool on 11/07-11/09. She was then given Imodium and did not have a bowel movement for 2 days on 11/10 and 11/11. She then had 3 loose watery BM's on 11/12 and 1 loose BM today 11/13. She also had the episode of coffee ground emesis this morning. In regard to vomitting the patient had a couple episodes on 11/07- 11/09 but minimal. Patient History Medical History (Updated 11/13/18 @ 16:51 by Yvette Gonzalez DO) Abnormal colonoscopy (Acute) Alcoholism in remission (Acute) CVA (cerebral vascular accident) (Acute) Colon polyps (Acute) Dementia (Acute) Diabetes mellitus type 2 in nonobese (Acute) Dysphagia as late effect of cerebrovascular accident (CVA) (Acute) Gout (Acute) Hard of hearing (Acute) Hemiparesis affecting left side as late effect of cerebrovascular accident (CVA) (Acute) Peptic ulcer disease (Acute) Stroke (Acute) TIA (transient ischemic attack) (Acute) Tobacco dependence (Acute) Surgical History (Updated 11/13/18 @ 14:50 by Yvette Gonzalez DO) H/O hysterectomy with oophorectomy (Acute) History of back surgery (Acute) Family History (Updated 11/13/18 @ 14:55 by Yvette Gonzalez DO) Mother Alcoholism Father No problems noted. Brother Stomach cancer Sister Heart attack Social History (Updated 11/13/18 @ 09:39 by Abebe Trejo DO) household members: other Smoking Status: Former smoker alcohol intake: former Family & Social History Social History: household members family,children Prior Living Arrangements House Safety & Behavioral: Feels Safe in Current Yes Environment Been Physically Hurt or No Threatened By a Person Suicidal Ideation Description None Suicide Plan Description No Plan Tobacco & Substance use: Smoking Status Former smoker, 1 ppd x 56 years, quit 09/06/18 due to CVA alcohol intake former alcoholic, quit 15 years ago Substance Use Type does not use Meds Home Medications Medication Instructions Recorded Confirmed Type Artificial Tears (PF) 1 drp EYE-BOTH QID 11/13/18 11/13/18 History Fleet Enema 118 ml CO DAILY PRN 11/13/18 11/13/18 History Lantus Solostar U-100 Insulin 14 units SUBCUT DAILY 11/13/18 11/13/18 History Maalox Maximum Strength 15 ml PO Q4-6H PRN 11/13/18 11/13/18 History acetaminophen 650 mg PO Q4H PRN 11/13/18 11/13/18 History atorvastatin 80 mg PO BEDTIME 11/13/18 11/13/18 History benzonatate 200 mg PO TID PRN 11/13/18 11/13/18 History bisacodyl 10 mg CO DAILY PRN 11/13/18 11/13/18 History bisacodyl [Dulcolax (bisacodyl)] 10 mg PO PRN PRN 11/13/18 11/13/18 History calcium carbonate [Tums] 200 mg PO PRN PRN 11/13/18 11/13/18 History carvedilol 1.5625 mg PO BID 11/13/18 11/13/18 History clopidogrel 75 mg PO DAILY 11/13/18 11/13/18 History colchicine 0.6 mg PO BID 11/13/18 11/13/18 History cyclobenzaprine 10 mg PO BID PRN 11/13/18 11/13/18 History dextrose [Glucose Gel] 15 g PO Q15M PRN 11/13/18 11/13/18 History docusate sodium 100 mg PO PRN PRN 11/13/18 11/13/18 History escitalopram oxalate 10 mg PO DAILY 11/13/18 11/13/18 History glipizide 5 mg PO DAILY 11/13/18 11/13/18 History ipratropium-albuterol 3 ml INHALATION Q4-6H PRN 11/13/18 11/13/18 History magnesium hydroxide [Milk of 30 ml PO BEDTIME PRN 11/13/18 11/13/18 History Magnesia] melatonin 3 mg PO BEDTIME PRN 11/13/18 11/13/18 History mirtazapine 15 mg PO DAILY 11/13/18 11/13/18 History ondansetron 4 mg PO Q4-6H PRN 11/13/18 11/13/18 History polyethylene glycol 3350 17 g PO DAILY PRN 11/13/18 11/13/18 History ranitidine HCl 150 mg PO BID 11/13/18 11/13/18 History sennosides [senna] 8.6 mg PO DAILY PRN 11/13/18 11/13/18 History metoclopramide HCl 5 mg PO TID PRN #90 tab 11/14/18 Rx nicotine 7 mg TOPICAL DAILY #30 ea 11/14/18 Rx pantoprazole 40 mg PO BID #60 tab 11/14/18 11/13/18 Rx Allergies Allergy/AdvReac Type Severity Reaction Status Date / Time codeine Allergy Verified 11/13/18 09:42 ibuprofen Allergy Verified 11/13/18 09:42 oxycodone Allergy Verified 11/13/18 09:42 pseudoephedrine Allergy Verified 11/13/18 09:42 [From Sudafed] Sulfa (Sulfonamide Allergy Verified 11/13/18 09:42 Antibiotics) Review of Systems Review of Systems A 10 system comprehensive review of systems was conducted with the patient and found to be negative except as above in the History of Present Illness. Exam Vital Signs (past 8 hours): - 11/13/18 09:26 11/13/18 09:55 11/13/18 10:10 Temperature 97.3 F L Pulse Rate 87 85 85 Respiratory Rate 17 15 13 Blood Pressure 154/70 H Blood Pressure [Left Arm] 152/65 H 139/60 Pulse Oximetry 100 97 97 11/13/18 10:59 11/13/18 11:32 11/13/18 11:41 Temperature 96.6 F L Pulse Rate 83 74 73 Respiratory Rate 15 17 16 Blood Pressure 143/75 H Blood Pressure [Left Arm] 125/69 139/62 Pulse Oximetry 96 96 94 Oxygen Delivery Method Room Air Narrative Exam Narrative: General: Elderly thin female sitting in bed comfortably and in no acute distress, appears older than stated age, moderate dementia with short- term memory recall deficit but otherwise appropriately interactive. HEENT: Normocephalic, atraumatic. External ears without defect. Pupils equal, round, and reactive to light. Anicteric sclerae, moist conjunctivae, and no lid lag. Oropharynx free of erythema and cobble stoning. Oral mucosa dry. Hard of hearing Neck: Supple with full range of motion. No jugular venous distension. No bruits. No lymphadenopathy or thyromegaly. Cardiovascular: Regular rate and rhythm without murmurs, rubs, or gallops appr eciated. Pulmonary: Clear to auscultation bilaterally without crackles, wheezes, or rhonchi. Normal respiratory effort with no use of accessory muscles. Abdomen: Soft, bowel sounds present, non-tender other than mild suprapubic tenderness, non-distended. No hepatosplenomegaly or masses appreciated. Extremities: No clubbing, cyanosis, or edema. Skin: Normal temperature and texture, poor turgor; no rash, ulcers, or subcutaneous nodules appreciated. Neurological: Chronic left sided hemiparesis with intact sensation. Psychiatric: Depressed mood and flat affect. Alert and oriented to person and place. Moderate dementia with short-term memory recall deficit. Objective Labs Result Diagrams: 11/14/18 09:15 11/14/18 09:15 Labs: Laboratory Results - last 24 hr 11/13/18 11/13/18 11/13/18 09:15 09:15 09:15 WBC 8.0 RBC 4.41 Hgb 13.5 Hct 39.4 MCV 89.2 MCH 30.5 MCHC 34.2 RDW 14.1 Plt Count 200 Neut % (Auto) 66.9 Lymph % (Auto) 20.3 L O'Brien % (Auto) 10.4 Eos % (Auto) 1.8 L Baso % (Auto) 0.6 Neut # (Auto) 5300 Lymph # (Auto) 1600 O'Brien # (Auto) 800 Eos # (Auto) 100 Baso # (Auto) 0 PT 10.7 INR 0.9 APTT 33 Sodium 141 Potassium 4.1 Chloride 107 Carbon Dioxide 24 BUN 31 H Creatinine 1.10 H Estimated GFR 48.8 L BUN/Creatinine Ratio 28.2 H Glucose 97 Calcium 9.9 Total Bilirubin 0.5 AST 52 H ALT 75 H Alkaline Phosphatase 90 Total Protein 6.8 Albumin 4.1 Globulin 2.7 Albumin/Globulin Ratio 1.5 Stl C. cayetanensis PCR Stool Rotavirus (PCR) Stool Adenovirus (PCR) Stool Astrovirus (PCR) Stool Cryptosporidium PCR Stl E.coli Shiga Tox PCR St Sh/Enteroin Ecoli PCR Stool E coli O157 PCR Stl Enterotoxigenic E PCR Stool EPEC (PCR) Stl E. histolytica PCR Stool Giardia Lamblia PCR Stl P. shigelloides PCR St Y.enterocolitica PCR Stool Vibrio (PCR) Stl Vibrio cholerae PCR Stl Enteroaggr Ecoli PCR Stl Norovirus GI/GII PCR Campylobacter (PCR) C. difficile Tox (PCR) Salmonella (PCR) Blood Type Antibody Screen 11/13/18 11/13/18 09:25 11:27 WBC RBC Hgb Hct MCV MCH MCHC RDW Plt Count Neut % (Auto) Lymph % (Auto) O'Brien % (Auto) Eos % (Auto) Baso % (Auto) Neut # (Auto) Lymph # (Auto) O'Brien # (Auto) Eos # (Auto) Baso # (Auto) PT INR APTT Sodium Potassium Chloride Carbon Dioxide BUN Creatinine Estimated GFR BUN/Creatinine Ratio Glucose Calcium Total Bilirubin AST ALT Alkaline Phosphatase Total Protein Albumin Globulin Albumin/Globulin Ratio Stl C. cayetanensis PCR Not detected Stool Rotavirus (PCR) Not detected Stool Adenovirus (PCR) Not detected Stool Astrovirus (PCR) Not detected Stool Cryptosporidium PCR Not detected Stl E.coli Shiga Tox PCR Not detected St Sh/Enteroin Ecoli PCR Not detected Stool E coli O157 PCR Not Reportable Stl Enterotoxigenic E PCR Not detected Stool EPEC (PCR) Not detected Stl E. histolytica PCR Not detected Stool Giardia Lamblia PCR Not detected Stl P. shigelloides PCR Not detected St Y.enterocolitica PCR Not detected Stool Vibrio (PCR) Not detected Stl Vibrio cholerae PCR Not detected Stl Enteroaggr Ecoli PCR Not detected Stl Norovirus GI/GII PCR Not detected Campylobacter (PCR) Not detected C. difficile Tox (PCR) Not detected Salmonella (PCR) Not detected Blood Type O Positive Antibody Screen Negative Assessment & Plan Assessment & Plan narrative: Savana Chen is a 73-year-old female with a past medical history significant for multiple and recent (09/06/18) CVA with residual left-sided hemiparesis, dysphagia, and dementia; diabetes mellitus type 2, insulin using, depression, COPD, and peptic ulcer disease who presented for nausea, vomiting, diarrhea, and 1 episode of coffee-ground emesis. 1. Episode of coffee-ground emesis, not present on admission. Active. -Patient has had occasional episode of nausea and vomiting at [facility] facility and per nursing staff it has been minimal in quantity. The patient had one episode of coffee ground emesis prior to admission. No history of previous GI bleed or previous coffee ground emesis, hematemesis, hematochezia, or melena. Patient is currently on NSAIDs with aspirin and meloxicam daily. In addition to aspirin she is also on Plavix for stroke prophylaxis which increases her risk of bleeding. -Initial hemoglobin 13.5 and hematocrit 39.4 which is unchanged from baseline 1 month ago. -Differential diagnosis includes: Gastritis versus NSAID induced PUD versus gastroparesis versus Oxana-Somers tear versus non-bloody emesis. -Ordered respiratory viral PCR, pending. -Ordered H. pylori stool antigen which are send out tests and will take several days to return. -Continue to monitor closely for nausea and vomiting. Ordered Zofran 4 mg IV every 6 hours as needed for nausea. -Continue to monitor hemoglobin and hematocrit closely. -Discontinued aspirin and meloxicam. Held Plavix and plan to restart Plavix for stroke prophylaxis if patient is stable and does not have any signs of bleeding. -Continue IV fluids for mild dehydration with normal saline at 75 mL/hr and will expect blood counts to decrease to some degree. -Ordered Protonix 40 mg twice daily and ranitidine 150 mg twice daily. -Ordered nuclear medicine gastric emptying study, pending. 2. Acute diarrhea, present on admission. Active. -Patient reports 3 weeks of nausea, vomiting, and diarrhea, however, she is a poor historian and [facility] has had several episodes of loose stool over the last 1 week. -Patient has not had substantial GI losses as her electrolytes are within normal limits and at the higher end of normal. Also of note, the patient reports chronic constipation her life making encoparesis a possibility. -Differential diagnosis includes: Drug-induced from metformin (recently titrating up) versus encoparesis. Less likely cause would be ova and parasite. Infectious diarrhea ruled out. -GI stool panel negative for infectious diarrhea. -Ordered ova and parasite which is a send out test and will take several days to return. -Ordered Imodium 4 mg every 6 hours as needed for significant loose watery diarrhea. -Ordered KUB to rule out chronic constipation with encopresis. -Held and consider discontinuing metformin indefinitely as this medication has a significant propensity for diarrhea and may be the cause of her diarrhea. 3. Acute kidney injury, present on admission. Active. -Likely prerenal azotemia related to dehydration from decreased PO intake and mild GI losses from nausea, vomiting and diarrhea. -Initial creatinine 1.10. Baseline creatinine 0.80. -Received 1 L NS bolus in ED. Continue IV fluids with normal saline at 75 mL/hr. -Avoid nephrotoxic agents. -Continue to monitor renal function daily. 4. Recent CVA with residual left-sided hemiparesis, dysphagia, and dementia, present on admission. Active. -Patient has been failing to thrive due to recent CVA and has failed rehabilitation and has been losing weight. Patient's daughter is leaning towards comfort care with hospice in the near future. -Ordered PT/OT/ST evaluation and treatment, pending. -Held aspirin and Plavix as above. -Continue atorvastatin 80 mg daily at bedtime. 5. Diabetes mellitus type 2, insulin using, present on admission. Stable. -Unclear baseline glycemic control. Ordered hemoglobin A1c, pending. -Held oral anti hyperglycemics including glipizide and metformin. Consider discontinuing metformin indefinitely as this medication has a significant propensity for diarrhea and may be the cause of her diarrhea. -Continue Lantus 14 units daily. -Continue ACHS blood glucose and low-dose correctional scale. 6. Transaminitis, acuity unclear, present on admission. Stable. -Likely chronic and related to fatty liver. Patient also has a history of alcoholism (quit 15 years ago) with likely alcohol induced injury and underlying disease. -Initial AST 52 and ALT 75, mild elevation. -Continue to monitor LFTs daily. 7. COPD not in acute exacerbation, present on admission. Stable. -Continue as needed DuoNeb every 4-6 hours for shortness of breath. 8. Depression, chronic, present on admission. Stable. -Continue escitalopram 10 mg daily and mirtazapine 15 mg daily at bedtime. 9. GERD, chronic, present on admission. Stable. -Continue Protonix 40 mg twice daily and ranitidine 150 mg twice daily. 10. Tobacco dependence, chronic, present on admission. Stable. -Continue nicotine patch 7 mg daily for nicotine withdrawal. 11. Gout, chronic, present on admission. Stable. -Continue colchicine 0.6 mg twice daily. Patient is admitted under observation status with expected length of stay less than 2 midnights due to severity of presenting symptoms, risk of adverse event, and complexity of treatment plan. Quality VTE Deep Vein Thrombosis/Pulmonary Embolism Present on Admission: No
--- NOTE | 2018-11-13 14:45 | PC.NURSE ---
1205 Pt arrived from ED via stretcher, Ptb is awake, alert, dtr at bedside. 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 Pt is O x 3. slight facial droop left side. Pt came from [facility]. Pt has not voided since noon. Reported she was inc bowel & bladder in the ED. Pt has a brief on, denies nausea. 1415 Stool specimen sent & is neg for infection. 1430 did not recieve the latest med sheet from [facility], case mgmnt Anny will call to get the updated medication information needed from [facility]. Pt allowed to have thin liqs per Pt & family request. PO fluids w/supervision only. Pt at risk of aspiration d/t past CVA. as approved by Dr Gonzalez. SCDs applied ble. IV fluids infusing.
--- NOTE | 2018-11-13 15:05 | PC.NURSE ---
1400 A nicotine patch dated 11/10 was removed from L chest site.
--- NOTE | 2018-11-13 15:12 | CM.DPNOTE ---
DCP note: Alerted by RNs Lauryn and Tracey that pt had just admitted to room 214, that she came from [facility] and they did not receive the usual medication list with time of last dosing noted. They stated that Rhona/[facility] told them this was no longer allowed. [facility]. She confirmed that this was not correct and stated she would have the correct medication list faxed to main nurses station fax. She then called back to say family had arrived to request the order list and was bringing these to the hospital. Confirmed with ELLIOT Combs that they are now here and in the Red Folder/hard copy chart.
[2018-11-13 15:49] LABS: Magnesium 1.8 mg/dL (1.6-2.3)
--- NOTE | 2018-11-13 16:02 | DI.RAD.S_ITS ---
PROCEDURE: XR KUB INDICATIONS: constipation? TECHNIQUE: One view of the abdomen acquired. COMPARISON: None. FINDINGS: Surgical changes and devices: Lumbosacral fixation hardware is seen. Bowel: There is a mild of stool seen within the distal colon. Prominent, yet not frankly dilated loops of small bowel are seen that measure up to 2 cm. Gaseous prominence can be within the colon, with the transverse colon measuring 5 cm. On this supine only study, air-fluid levels are not assessed. Soft tissues: No suspicious abdominal calcifications. Visualized solid organ contours appear normal in size. Bones: No suspicious bony lesions. IMPRESSION: There is a mild amount of stool seen within the distal colon. The gaseous prominence of large and small bowel is most consistent with ileus. If it would be helpful for clinical management decision making, please consider a dedicated CT of the abdomen and pelvis with IV and oral contrast. Dictated by: Chris Allen M.D. on 11/13/2018 at 15:59 Approved by: Chris Allen M.D. on 11/13/2018 at 16:01
[2018-11-13 16:55] LABS: Hemoglobin A1C% w Est Avg Glu 7.5 % (4.0-6.0)
[2018-11-13] MEDS: DEXTROSE 50 % IN WATER 25 GM/50 ML SYRINGE IV (17:22)
--- NOTE | 2018-11-13 17:30 | DI.CT.S_ITS ---
PROCEDURE: CT ABDOMEN PELVIS W CON INDICATIONS: possible ileus, constipation w/ encoparesis, N/V TECHNIQUE: After the administration of oral and intravenous contrast, 5 mm thick sections acquired from the diaphragms to the symphysis. 5 mm thick coronal and sagittal reformats were performed. For radiation dose reduction, the following was used: automated exposure control, adjustment of mA and/or kV according to patient size. COMPARISON: None. FINDINGS: Image quality: Excellent. ABDOMEN: Lung bases: Minimal centrilobular ground glass opacity at the left lung base. This may represent atelectasis or low-grade infectious/inflammatory process. Heart size is normal. Solid organs: Liver is normal in size and enhancement. Gallbladder is absent. Biliary system is non-dilated. Pancreas enhances normally. Spleen is normal in size and enhancement. No adrenal nodules. Kidneys are normal in size. Mild bilateral hydronephrosis and proximal/mid hydroureter. Peritoneum and bowel: There is liquid stool contents in the right colon. No bowel obstruction or significant ileus. No pneumoperitoneum. Nodes and vessels: No retroperitoneal or mesenteric adenopathy. Aorta and inferior vena cava are normal in caliber. Marked atherosclerotic aortoiliac disease. Miscellaneous: No ventral hernias. PELVIS: Genitourinary: Urinary bladder is markedly distended. No obvious mass in the region of the urethra. The uterus is surgically absent. Miscellaneous: No inguinal hernias or adenopathy. Bones: No suspicious bony lesions. L5-S1 pedicle screws and laminectomy. A moderate sized muscular lipoma in the left groin. No vertebral body compression fractures. IMPRESSION: 1. Markedly distended urinary bladder with dilated bilateral proximal/mid ureters and renal collecting systems. Findings are suspicious for bladder outlet obstruction. No obvious mass is identified. 2. No bowel obstruction or significant ileus. Liquid stool contents in the colon suggestive of diarrhea. Comment: Findings were discussed with Dr. Humphreys Hospitalist at the time of dictation. Dictated by: Parmjit Sheth M.D. on 11/13/2018 at 19:28 Approved by: Parmjit Sheth M.D. on 11/13/2018 at 19:46
--- NOTE | 2018-11-13 17:37 | PC.NURSE ---
Noreen shift note: Patient awake, alert, sitting up in bed with HOB elevated while eating dinner 1:1 as per order. BG check 45 mg/dl, upon recheck 51 mg/dl. Administered 25 GM Dextrose AMP IV, at recheck 1735 177 mg/dl. Will continue to monitor closely. Patient is pale, no diaphoresis or dizziness noted. Oriented to self, does not know where she is at (states she is in [place]), unaware of situation or time. Will continue to monitor closely.
[2018-11-13 19:07] LABS: Adenovirus Not Detected (Not Detect); Coronavirus 229E Not Detected (Not Detect); Coronavirus HKU1 Not Detected (Not Detect); Coronavirus NL 63 Not Detected (Not Detect); Coronavirus OC43 Not Detected (Not Detect); Human Metapneumovirus Not Detected (Not Detect); Human Rhinovirus/Enterovirus Not Detected (Not Detect); Influenza A Not Detected (Not Detect); Influenza B Not Detected (Not Detect)
[2018-11-13 19:08] LABS: Bordetella pertussis Not Detected (Not Detect); Chlamydophila pneumoniae Not Detected (Not Detect); Mycoplasma pneumoniae Not Detected (Not Detect); Parainfluenza Virus 1 Not Detected (Not Detect); Parainfluenza Virus 2 Not Detected (Not Detect); Parainfluenza Virus 3 Not Detected (Not Detect); Parainfluenza Virus 4 Not Detected (Not Detect); Respiratory Syncytial Virus Not Detected (Not Detect)
--- NOTE | 2018-11-13 19:10 | PC.NURSE ---
191: OFF floor for CT scan with Michel BELL. Pt. in stable condition.
[2018-11-13 20:24] LABS: Appearance Urine UA CLEAR; Bilirubin Urine UA NEGATIVE (NEGATIVE); Color Urine UA YELLOW; Glucose Urine UA TRACE g/dL (Negative); Ketones Urine UA NEGATIVE (NEGATIVE); Leukocyte Esterase Urine UA NEGATIVE (NEGATIVE); Nitrite Urine UA NEGATIVE (Negative); Occult Blood Urine UA NEGATIVE (Negative); Protein Urine UA NEGATIVE (Negative); Urobilinogen Urine UA 0.2 E.U./dL (0.2)
[2018-11-13 20:32] LABS: Bacteria Urine None Seen; Culture Indicated Urine Cult Not Indicated; Hyaline Casts Urine 1-5/LPF; RBC Urine 0-1/HPF (0-5/HPF); Squamous Epithelial Cell Urine 0-1 /HPF (0-5/HPF); Urine Comments Microscopic Normal; WBC Urine 0-1/HPF (0-5/HPF)
[2018-11-13] MEDS: PANTOPRAZOLE 40 MG VIAL IV (21:10)
[2018-11-14] MEDS: SODIUM CHLORIDE 0.9% 1,000 ML 75 ML IV (04:08)
[2018-11-14 06:00] VITALS: BP 138/61; PULSE 75; RESP 16; TEMP 36.4; O2SAT 100
[2018-11-14 07:40] VITALS: BP 128/66; PULSE 81; RESP 18; TEMP 36.6; O2SAT 100
[2018-11-14 08:02] VITALS: O2SAT 100
[2018-11-14 09:36] LABS: Add Manual Diff / Slide Review NO; Basophils Absolute Auto 0 /uL (0-100); Basophils Percent Auto 0.5 % (0-2); Eosinophils Absolute Auto 100 /uL (0-450); Hematocrit 34.3 % (36-46); Lymphocytes Absolute Auto 1700 /uL (1100-4500); Lymphocytes Percent Auto 24.4 % (25-40); Mean Corpuscular HGB Conc 34.9 % (30-36); Mean Corpuscular Hemoglobin 30.7 PG (26-34); Mean Corpuscular Volume 88.1 fL (80-100); Monocytes Absolute Auto 600 /uL (0-900); Monocytes Percent Auto 9.5 % (3-14); Neutrophils Absolute Auto 4300 /uL (1500-7000); Neutrophils Percent Auto 63.6 % (50-75); Platelet Count 170 X10^3/uL (150-400); Red Cell Distribution Width 14.1 % (11.6-14.8); White Blood Cell Count 6.8 X10^3/uL (4.5-11.0)
[2018-11-14 09:41] LABS: Alanine Aminotransferase 84 IU/L (9-52); Albumin 3.2 g/dL (3.5-5.0); Albumin Globulin Ratio 1.3 (1.0-2.8); Alkaline Phosphatase 73 U/L (38-126); Aspartate Aminotransferase 53 IU/L (14-36); Bilirubin Total 0.4 mg/dL (0.2-1.3); Blood Urea Nitrogen 16 mg/dL (7-17); Calcium 8.9 mg/dL (8.4-10.2); Carbon Dioxide 21 mmol/L (22-32); Chloride 110 mmol/L (98-107); Estimated Glomerular Filt Rate > 60.0 mL/min (>60); Globulin 2.5 g/dL (1.7-4.1); Glucose 86 mg/dL (80-110); HEMOLYSIS < 15 (0-50); Magnesium 1.4 mg/dL (1.6-2.3); Potassium 3.7 mmol/L (3.4-5.1); Sodium 139 mmol/L (137-145); Total Protein 5.7 g/dL (6.3-8.2)
--- NOTE | 2018-11-14 09:51 | PT.IIE ---
Surgical History (Last Updated 11/13/18 @ 14:50 by Yvette Gonzalez DO) H/O hysterectomy with oophorectomy (Acute) History of back surgery (Acute) Medical History (Last Updated 11/13/18 @ 16:51 by Yvette Goznalez DO) Abnormal colonoscopy (Acute) Alcoholism in remission (Acute) CVA (cerebral vascular accident) (Acute) Colon polyps (Acute) Dementia (Acute) Diabetes mellitus type 2 in nonobese (Acute) Dysphagia as late effect of cerebrovascular accident (CVA) (Acute) Gout (Acute) Hard of hearing (Acute) Hemiparesis affecting left side as late effect of cerebrovascular accident (CVA) (Acute) Peptic ulcer disease (Acute) Stroke (Acute) TIA (transient ischemic attack) (Acute) Tobacco dependence (Acute) Physical Therapy Inpatient Evaluation/Re-Eval M1 PT/OT-IP Prior Functional Status Start: 11/14/18 07:47 Freq: NEEDED Status: Active Protocol: Document 11/14/18 11:01 RS (Rec: 11/14/18 11:05 RS [id number]) Medical Review Prior Functional Status Medical History Reviewed Yes Mobility and Gait Per [facility], pt required 1P extensive to dependent assist for all mobility. Prior Functional Level (Other details) At [facility] pt was on thickened liquids, but not clarified as to type. Social History Household Members other Living Arrangements Skilled Nurse Facility Additional Social History Comment Pt has been at [facility] since September after significant CVA w/ L deficits. Dtr lives in [place]. M2 PT-IP Current Condition Start: 11/14/18 07:47 Freq: NEEDED Status: Active Protocol: Document 11/14/18 09:51 RS (Rec: 11/14/18 10:02 RS [id number]) Physical Therapy Current Condition Current Condition Evaluation Date 11/14/18 Treatment Diagnosis L hemiparesis d/t CVA and gross deconditioning Onset Date 11/07/18 M3 PT-IP Subjective Start: 11/14/18 07:47 Freq: NEEDED Status: Active Protocol: Document 11/14/18 09:51 RS (Rec: 11/14/18 10:02 RS [id number]) Subjective Physical Therapy Visit Type Type Initial Evaluation Physical Therapy Visit Comments Patient Comments Pt expresses concern that she doesn't know why she's not at home. Patient Goals to sleep Therapy Pain Assessment Pain When Pain Assessed At Rest Pain Present Pain Present Denied Pain M4 PT-IP Mobility and Gait Start: 11/14/18 07:47 Freq: NEEDED Status: Active Protocol: Document 11/14/18 09:51 RS (Rec: 11/14/18 10:02 RS [id number]) PT-Bed Mobility Assessment Rolling Type of Rolling Bilateral Level of Assist Standby Assistance Minimal Assistance Supine to Sit Supine to Sit Moderate Assistance Sit to Supine Sit to Supine Moderate Assistance M5 PT-IP Objective Assessments Start: 11/14/18 07:47 Freq: NEEDED Status: Active Protocol: Document 11/14/18 09:51 RS (Rec: 11/14/18 10:11 RS [id number]) Orientation Orientation/Cognition Level of Alertness Confusional State Orientation Name Safety Awareness Decreased Safety Awareness Memory Description Short Term Impaired Char Puller Impaired Comments Pt slow to answer but able to hold a simple conversation, a little anxious, didn't know where she was, why she was here, also didn't know where she was prior to the admit, didn't realize she had had a stroke Gross Range of Motion Lower Extremity ROM Assessment Within Functional Limits Strength Lower Extremity Strength Assessment Left Impaired Comments Strength Comments L hemiparesis from CVA M6 PT-IP Treatment Start: 11/14/18 07:47 Freq: NEEDED Status: Active Protocol: Document 11/14/18 11:01 RS (Rec: 11/14/18 11:05 [id number]) Physical Therapy Treatment Education Education Provided Safety M7 PT-IP Assessment and Plan Start: 11/14/18 07:47 Freq: NEEDED Status: Active Protocol: Document 11/14/18 11:01 RS (Rec: 11/14/18 11:05 [id number]) PT Summary Assessment and Plan Potential Rehabilitation Potential Fair Status of Condition at Evaluation Stable Summary Impairments Strength Balance Coordination Cognition Bed Mobility Transfers Gait Activity Tolerance Assessment Summary Pt presents with residual L hemiparesis from CVA in September 2018. On top of this pt seems to also present with gross weakness/deconditioning related to limited intake with several days of diarrhea. Pt does have potential for functional improvement and will continue to benefit from further subacute PT/OT/CERTIFIED REGISTERED NURSE PRACTITIONER at SNF rehab. Pt to discharge back later today, acute PT will sign off. Frequency of Treatment Frequency Of Treatment Discharge Recommendations To Nursing Amount of Assist Needed 2 Person Assist Discharge Recommendations PT Discharge Recommendations SNF Rehab
[2018-11-14] MEDS: METOCLOPRAMIDE HCL 5 MG TABLET PO (10:31)
[2018-11-14] MEDS: PANTOPRAZOLE 40 MG VIAL IV (10:37)
[2018-11-14 11:00] VITALS: BP 122/73; PULSE 83; RESP 18; TEMP 36.7; O2SAT 98
[2018-11-14] MEDS: MAGNESIUM SULFATE 2 GM/50 ML PIGGYBACK IV (12:37)
[2018-11-14] MEDS: SODIUM CHLORIDE 0.9% FLUSH 10 ML IV (12:37)
--- NOTE | 2018-11-14 12:48 | OT.IP.EVAL ---
Past Medical History (Last Updated 11/13/18 @ 16:51 by Yvette Gonzalez DO) Abnormal colonoscopy (Acute) Alcoholism in remission (Acute) CVA (cerebral vascular accident) (Acute) Colon polyps (Acute) Dementia (Acute) Diabetes mellitus type 2 in nonobese (Acute) Dysphagia as late effect of cerebrovascular accident (CVA) (Acute) Gout (Acute) Hard of hearing (Acute) Hemiparesis affecting left side as late effect of cerebrovascular accident (CVA) (Acute) Peptic ulcer disease (Acute) Stroke (Acute) TIA (transient ischemic attack) (Acute) Tobacco dependence (Acute) Surgical History (Last Updated 11/13/18 @ 14:50 by Yvette Gonzalez DO) H/O hysterectomy with oophorectomy (Acute) History of back surgery (Acute) Occupational Therapy Inpatient Evaluation/Re-Eval M1 PT/OT-IP Prior Functional Status Start: 11/14/18 12:27 Freq: NEEDED Status: Active Protocol: Document 11/14/18 12:27 [facility] (Rec: 11/14/18 12:48 [facility] [id number]) Medical Review Prior Functional Status Medical History Reviewed Yes Mobility and Gait Per [facility], pt required 1P extensive to dependent assist for all mobility. Activities of Daily Living and IADL's Pt needing assist for all dressing,toileting, and showering. Pt states able to do self feeding and grooming after set-up. Prior Functional Level (Other details) At [facility] pt was on thickened liquids, but not clarified as to type. Social History Household Members other Living Arrangements Skilled Nurse Facility Additional Social History Comment Pt has been at [facility] since September after significant CVA w/ L deficits. Dtr lives in [place]. M2 OT-IP Current Condition Start: 11/14/18 12:27 Freq: Status: Active Protocol: Document 11/14/18 12:27 [facility] (Rec: 11/14/18 12:48 [facility] [id number]) Occupational Therapy Current Condition Current Condition Evaluation Date 11/14/18 Treatment Diagnosis Diarrhea, weakness Diagnosis Onset Date 11/13/18 Weight Bearing Status Weight Bearing Status Weight Bear as Tolerated M3 OT- IP Subjective and Pain Start: 11/14/18 12:27 Freq: Status: Active Protocol: Document 11/14/18 12:27 [facility] (Rec: 11/14/18 12:48 [facility] [id number]) OT- Subjective Occupational Therapy Visit Type Type Initial Evaluation Visit Start Time 11:50 Visit Stop Time 12:22 Total Visit Minutes 32 Occupational Therapy Visit Comments Patient Comments Pt wanting to try to get up and use the bathroom. OT Pain Assessment Pain When Pain Assessed At Rest Pain Present Pain Present Denied Pain M4 OT- IP ADL's Start: 11/14/18 12:27 Freq: Status: Active Protocol: Document 11/14/18 12:27 [facility] (Rec: 11/14/18 12:48 [facility] [id number]) OT [id number] Comments OT Self-Feeding Comments Pt refusing to eat at this time. Pt is aware that she is on thickened liquids but does not like it. OT ADL-Dressing General Eval Lower Body Dressing Ability Maximum Assistance Areas Needing Assistance Underpants/Brief Socks Comments OT Dressing Comments MAX A for all socks and brief at this time due to decreased functional use of LUE , balance, and needing one person to help stand her as another assists with brief management. OT ADL-Toileting General Evaluation Toileting Ability Maximum Assistance Areas Needing Assistance Manage Clothing Perform Perineal Hygiene Devices Toileting Assistive Devices Commode Comments OT Toileting Comments MAX A x 1 to stand pt while another person dependent to assist pt with all brief and hygiene needs. OT ADL-Bathing Comments OT Bathing Comments Pt declined this session. M5 OT- IP IADL's Start: 11/14/18 12:27 Freq: Status: Active Protocol: Document 11/14/18 12:27 [facility] (Rec: 11/14/18 12:48 [facility] [id number]) OT-Instrumental Activities of Daily Living Deficits IADL Deficits Identified Deficits Home Safety Awareness Awareness of Need for Assistance at Home Decreased Awareness Medication Management Medication Management Caregiver Administers Money Management Money Management Caregiver Provides Assistance Meal Preparation Meal Preparation Caregiver Provides Assist M6 OT- IP Functional Cognition Start: 11/14/18 12:27 Freq: Status: Active Protocol: Document 11/14/18 12:27 [facility] (Rec: 11/14/18 12:48 [facility] [id number]) Cognitive Factors Limiting Selfcare Function Cognitive Ability Level of Alertness Alert Confusional State Patient Orientation Name Attention Span Ability Capable of Focused Attention Capable of Sustained Attention Ability to Follow Commands Able to Follow One Step Commands with Increased Time Able to Follow One Step Commands with Repetition Memory Description Short Term Impaired Safety Awareness Underestimates Need for Assistance Problem Solving Ability Unable to Identify Errors Needs Assist to Identify Solutions Cognitive Comments Cognitive Assessment Comments Pt only orientated to name, but able to recall has had a CVA, but for this admission not able to states here due to diarrhea. OT- Vision and Hearing OT- Hearing Assessment OT- Hearing Assessment Hearing Impaired OT- Vision Assessment Visual Acuity Glasses All The Time M7 OT- IP Mobility and Balance Start: 11/14/18 12:27 Freq: Status: Active Protocol: Document 11/14/18 12:27 [facility] (Rec: 11/14/18 12:48 [facility] [id number]) OT- Bed Mobility Assessment Rolling Type of Rolling Roll to Right Level of Assistance Minimal Assistance Bedrails Supine to Sit Supine to Sit Assist Moderate Assistance 1 Person Assistance Sit to Supine Sit to Supine Assist Maximum Assistance 1 Person Assistance Scooting Scooting to Edge of Bed Moderate Assistance 1 Person Assistance OT-Transfer Assessment Sit to and From Stand Sit to and from Stand Maximum Assistance 1 Person Assistance Transfers Transfer Ability Moderate Assistance 2 Person Assistance Technique Transfer Destination Bed Bedside Commode Transfer Technique Stand Step Pivot Devices Transfer Assistive Devices None Gait Belt Comments Mobility Comments Pt needing assist to block left knee and asist to stand and transfer with MODA X 1 for safety to [facility]. Best to transfer pt to the right as left leg tends to hyperextend and not stable to put wieght through. OT- Gait Assessment Comments Gait Ability Comments At this time, transfers only. OT- Balance Assessment Sitting Balance and Reactions Static Sitting Balance Ability Fair Dynamic Sitting Balance Ability Poor Standing Balance and Reactions Static Standing Balance Ability Poor Dynamic Standing Balance Ability Poor Comments Other Balance Tests/Deviations/Treatment Pt needing use of bed rail to : sit and maintain midline sitting otherwise needing from gael to MODA. M8 OT- IP Objective Assessments Start: 11/14/18 12:27 Freq: Status: Active Protocol: Document 11/14/18 12:27 [facility] (Rec: 11/14/18 12:48 [facility] [id number]) OT Gross Range of Motion Upper Extremity Range of Motion Assessment Left Impaired ROM Impairments PROM shoulder flexion 0-100, otherwise WFL for all other movements PROM. Minimal movement for AROM, slight finger movements noted and when yawning noted internal rotation with wrist and fingers flexed. OT Strength Upper Extremity Strength Assessment Left Impaired Comments Strength Comments RUE WFL for all AROM and strength. OT- Coordination Assessment Upper Extremity Finger to Nose Test Left UE Impaired Finger Tapping Test Left UE Impaired OT-Muscle Tone Assessment Muscle Tone WNL Yes Comments Muscle Tone Comments Increased tone in left upper extremity. OT Sensation Assessment Comments Summary Comments Numbness and decreased sensation noted for left hand, intact proximally for light touch. M9 OT- IP Assessment and Plan Start: 11/14/18 12:27 Freq: Status: Active Protocol: Document 11/14/18 12:27 [facility] (Rec: 11/14/18 12:48 [facility] [email or web address]) OT Summary Assessment and Plan Potential Rehabilitation Potential Fair Analytic Complexity at Evaluation Low Summary OT Impairments Range of Motion Strength Balance Coordination Sensation Tone Functional Cognition Functional Mobility Self-Feeding Grooming Dressing Toileting Bathing Toilet Transfers Shower Transfers Progress Towards Goals Slow Progress due to Medical Issues Slow Progress due to Activity Tolerance Slow Progress due to Cognition Assessment Summary Pt here for diarrhea and per staff at [facility] per PT's call, pt needing extensive one person assist for needs. At this time , pt needing two person assist for transfers and ADl needs for safety. Pt will benefit from continued skilled rehab to work on increasing use of left upper extremity, functional mobility and ADL's. Pt looking to be discharged back to skilled rehab today. Goals Self-Feeding Goal Standby Assistance Grooming Goal Standby Assistance Dressing Goal Moderate Assistance Toileting Goal Moderate Assistance Toilet Transfer Goal Moderate Assistance Days to Meet Goals 3 Treatment Plan OT Treatment Plan ADL Training Functional Cognition Training Functional Mobility Patient/Family Education Discharge Planning Other Treatment Recommendations and Next Education to pt for left Treatment Focus upper extremity positioning and gentle stretching. Grooming from seated position. Discharge Recommendations OT Discharge Recommendations SNF Rehab
--- NOTE | 2018-11-14 12:58 | PM.DS.1 ---
History of Present Illness Chief complaint: Diarrhea, coffee ground emesis Narrative: Written by myself Dr. Gonzalez: Savana Chen is a 73-year-old female with a past medical history significant for multiple and recent (09/06/18) CVA with residual left-sided hemiparesis, dysphagia, and dementia; diabetes mellitus type 2, insulin using, depression, COPD, and peptic ulcer disease who presented for nausea, vomiting, diarrhea, and 1 episode of coffee-ground emesis. Due to the patients dementia the patient is a poor historian so the majority of the HPI was gathered from her daughter. The patient's daughter reports that in September she had a massive CVA with residual left-sided hemiparesis in [place] at [facility]. She had previously been on aspirin for previous CVA and Plavix was added in addition. She has been at [facility] for a trial of rehabilitation as her daughter lives here in [place]. The patient's daughter reports that she has slowly declined since her CVA in September. She has a poor appetite and decreased PO intake, she has dysphagia due to CVA requiring thickened liquids which she significantly dislikes, she has lost a significant amount of weight since her CVA of approximately 10-15 lbs, she has failed rehabilitation and is now bed bound. Due to her circumstances the patient has been quite depressed and was recently started on escitalopram and mirtazapine. Her daughter has discussed hospice and obtained an informational visit recently. The patient has also been having reportedly intermittent nausea, vomiting and diarrhea over the last 3 weeks. The patient reports that she has been recently started on metformin with titration up to a 1000 mg twice daily. GI panel in the ED was negative for infectious diarrhea. This morning she had an episode of coffee ground emesis prompting her to be taken to the ED. Her hemoglobin and hematocrit are stable and unchanged compared to 1 month ago. She denies headache, chest pain, shortness of breath, abdominal pain, epigastric pain, nausea, vomiting, fever, chills, dysuria, or constipation. She endorses chronic constipation all her life but now has had loose stool recently with intermittent nausea and vomiting. She is unable to tell me the frequency of her bowel movements or emesis. She has had no recurrence of coffee-ground emesis. Patient was admitted for observation. [facility] was contacted and the nurse reports that the patient had loose watery stool on 8/5-11/09. She was then given Imodium and did not have a bowel movement for 2 days on 11/10 and 11/11. She then had 3 loose watery BM's on 11/12 and 1 loose BM today 11/13. She also had the episode of coffee ground emesis this morning. In regard to vomitting the patient had a couple episodes on 11/07-11/09 but minimal. Discharge Providers Date of admission: 11/13/18 11:09 Discharge Date: 11/14/18 Consults: 11/13/18 11:43 Consult to [employer] Routine Comment: From [facility] at [facility] after recent CVA, declining/FTT 11/13/18 14:45 Consult to Occupational Therapy Evaluate & Treat Comment: recent CVA, failed rehab Physician Instructions: Evaluate and treat Consult to Physical Therapy Evaluate & Treat Comment: recent CVA, failed rehab Physician Instructions: Evaluate and Treat Consult to Speech Therapy Evaluate & Treat Comment: dysphagia from previous stroke Physician Instructions: Evaluate and treat Discharge provider: Yvette Gonzalez DO Summary Discharge Diagnosis: 1. Intermittent nausea and vomiting with one episode of possible coffee ground emesis, likely secondary to gastroparesis, not present on admission. Intermittent and not observed during hospitalization. 2. Acute diarrhea, unclear etiology, present on admission. Ongoing and stable. 3. Neurogenic bladder, likely chronic, present on admission. Resolved. 4. Acute kidney injury, present on admission. Resolved. 5. Recent CVA with residual left-sided hemiparesis, dysphagia, and moderate dementia, present on admission. Active. 6. Diabetes mellitus type II, insulin using, present on admission. Stable. 7. Transaminitis, acuity unclear, present on admission. Stable. 8. COPD not in acute exacerbation, present on admission. Stable. 9. Depression, chronic, present on admission. Stable. 10. GERD, chronic, present on admission. Stable. 11. Tobacco dependence, chronic, present on admission. Stable. 12. Gout, chronic, present on admission. Stable. Hospital Course: Savana Chen is a 73-year-old female with a past medical history significant for multiple and recent (09/06/18) CVA with residual left-sided hemiparesis, dysphagia, and dementia; diabetes mellitus type 2, insulin using, depression, COPD, and peptic ulcer disease who presented for nausea, vomiting, diarrhea, and 1 episode of coffee-ground emesis. 1. Intermittent nausea and vomiting with one episode of possible coffee ground emesis, likely secondary to gastroparesis, not present on admission. Intermittent and not observed during hospitalization. -Patient has had occasional episode of nausea and vomiting at senior living facility and per nursing staff at [facility] it has been minimal in quantity. The patient had one episode of reported coffee ground emesis prior to admission that is unclear if this was true GI bleed as Hemoccult of gastric contents was not performed. No history of previous GI bleed or previous coffee ground emesis, hematemesis, hematochezia, or melena. Patient is currently on NSAIDs with aspirin and meloxicam daily. In addition to aspirin she is also on Plavix for stroke prophylaxis which increases her risk of bleeding. -Differential diagnosis includes: Likely gastroparesis induced nausea vomiting. Other etiologies include: Gastritis versus NSAID induced PUD versus less likely Oxana-Somers tear versus non-bloody emesis. -Initial hemoglobin 13.5 and hematocrit 39.4 which is unchanged from baseline 1 month ago. Continued to monitor hemoglobin and hematocrit closely and trended down due to IVF and dilution. -Discontinued aspirin and meloxicam indefinitely. Held Plavix initially and restarted Plavix for stroke prophylaxis since patient was stable and does not have any signs of bleeding. -Respiratory viral PCR negative. -Ordered H. pylori stool antigen was not collected as patient needed to have semi solid formed stool and semi formed stool was inadvertently not sent. Consider sending outpatient. -Continued to monitor closely for nausea and vomiting. Ordered Zofran 4 mg IV every 6 hours as needed for nausea. Patient had no recurrence of nausea or vomiting. -Continued IV fluids for mild dehydration with normal saline at 75 mL/hr until adequately hydrated then discontinued and as expected blood counts decreased due to dilution. -Continued Protonix 40 mg twice daily for 2 weeks then back to once daily thereafter and ranitidine 150 mg twice daily. -KUB demonstrated mild stool seen within the distal colon, prominent yet not frankly dilated loops of small bowel are seen that measure up to 2 cm and gaseous prominence can be within the colon, with the transverse colon measuring 5 cm. Discussed findings with general surgery who believe this is likely service liaison representative of gastroparesis. -Discussed case with General surgery and if patient has recurrence of coffee-ground emesis or hematemesis would discontinue Plavix indefinitely and perform EGD outpatient. 2. Acute diarrhea, unclear etiology, present on admission. Ongoing and stable. -Patient reports 3 weeks of nausea, vomiting, and diarrhea, however, she is a poor historian and per nursing staff at [facility] patient has had several episodes of loose stool over the last 1 week. -Patient has not had substantial GI losses as her electrolytes are within normal limits and at the higher end of normal. Also of note, the patient reports chronic constipation all her life making encoparesis a possibility. -Differential diagnosis includes: Drug-induced from metformin (recently titrating up) versus encoparesis versus microscopic colitis. Less likely cause would be ova and parasite. Infectious diarrhea ruled out. -GI stool panel negative for infectious diarrhea. -KUB demonstrated mild stool seen within the distal colon, prominent yet not frankly dilated loops of small bowel are seen that measure up to 2 cm and gaseous prominence can be within the colon, with the transverse colon measuring 5 cm. Discussed findings with general surgery who believe this is likely service liaison representative of gastroparesis as above. -CT abdomen and pelvis with contrast demonstrated significantly distended bladder indicative of bladder outlet obstruction likely due to neurogenic bladder. Significant bladder distention may have contributed to emptying of bowels and encoparesis diarrhea. -Ordered ova and parasite which is a send out test that is pending and will take several days to return which will need to be followed up by the medical technologist microbiology of [facility]. -Discontinued Imodium as patient has gastroparesis and do not want to precipitate small-bowel obstruction or ileus. -Discontinued metformin indefinitely as this medication has a significant propensity for diarrhea and may be a considerable contributor to her diarrhea. -Discussed case with General surgery and consider outpatient colonoscopy if diarrhea persists despite the above interventions. 3. Neurogenic bladder, likely acute on chronic, present on admission. Resolved. -CT abdomen and pelvis with contrast demonstrated significantly distended bladder indicative of bladder outlet obstruction likely due to neurogenic bladder from diabetes mellitus type II and recent CVA. -Urinalysis negative for urinary tract infection. -Roberts catheter was placed for comfort and will need to be changed every 3-4 weeks. 4. Acute kidney injury, present on admission. Resolved. -Likely prerenal azotemia related to dehydration from decreased PO intake and mild GI losses from nausea, vomiting and diarrhea, as well as, postobstructive from neurogenic bladder. -Initial creatinine 1.10. Baseline creatinine 0.80. -Received 1 L NS bolus in ED. Continued IV fluids with normal saline at 75 mL/hr until adequately hydrated the discontinued. -Avoided nephrotoxic agents. -Continued to monitor renal function daily. 5. Recent CVA with residual left-sided hemiparesis, dysphagia, and moderate dementia, present on admission. Active. -Patient has been failing to thrive due to recent CVA and is failing rehabilitation and has been losing weight. Patient's daughter is leaning towards comfort care with hospice in the near future. -Continued PT and OT who recommend continuing rehabilitation as the patient has the potential for small improvements in mobility and transfers. The limiting factor to full benefit of rehabilitation is CVA with left-sided hemiparesis, significant depression with lack of motivation, and dementia. -Continued ST evaluation and treatment who provided recommendations for comfort eating including: dysphagia mechanical soft diet with thin liquids, techniques/exercise when eating and one-to-one feeding. -Discontinued aspirin and restarted Plavix as above. -Continued atorvastatin 80 mg daily at bedtime. 6. Diabetes mellitus type II, insulin using, present on admission. Stable. -Hemoglobin A1c 7.5%. -Complication of gastroparesis and neurogenic bladder likely due to longstanding diabetes mellitus type II and possibly recent CVA. -Held oral anti hyperglycemics including glipizide and metformin. Discontinued metformin indefinitely as this medication has a significant propensity for diarrhea and may be a considerable contributor to her diarrhea. -Continued Lantus 14 units daily. -Continued ACHS blood glucose and low-dose correctional scale. 7. Transaminitis, acuity unclear, present on admission. Stable. -Likely chronic and related to fatty liver. Patient also has a history of alcoholism (quit 15 years ago) with likely alcohol induced injury and underlying disease. -Initial AST 52 and ALT 75. -Continued to monitor LFTs daily which were mildly elevated and stable. 8. COPD not in acute exacerbation, present on admission. Stable. -Continued as needed DuoNebs every 4-6 hours for shortness of breath. Discontinued equivalent inhalers of Duonebs and as needed budesonide which is not an as needed medication. 9. Depression, chronic, present on admission. Stable. -Continued escitalopram 10 mg daily and mirtazapine 15 mg daily at bedtime. 10. GERD, chronic, present on admission. Stable. -Continued Protonix 40 mg twice daily and ranitidine 150 mg twice daily. 11. Tobacco dependence, chronic, present on admission. Stable. -Continued nicotine patch 7 mg daily for nicotine withdrawal. 12. Gout, chronic, present on admission. Stable. -Continued colchicine 0.6 mg twice daily. Status at Discharge Functional status at discharge: bed bound Exam Vital Signs (past 8 hours): - 11/14/18 06:00 11/14/18 07:40 11/14/18 08:02 Temperature 97.5 F L 97.9 F Pulse Rate 75 81 Respiratory Rate 16 18 Blood Pressure 138/61 128/66 Pulse Oximetry 100 100 100 11/14/18 11:00 Temperature 98.1 F Pulse Rate 83 Respiratory Rate 18 Blood Pressure 122/73 Pulse Oximetry 98 Oxygen Delivery Method Room Air Oxygen Flow Rate 0 Narrative Exam Narrative: General: Elderly thin female sitting in bed comfortably and in no acute distress, appears older than stated age, moderate dementia with short-term memory recall deficit but otherwise appropriately interactive. HEENT: Normocephalic, atraumatic. External ears without defect. Pupils equal, round, and reactive to light. Anicteric sclerae, moist conjunctivae, and no lid lag. Oropharynx free of erythema and cobble stoning. Oral mucosa dry. Hard of hearing. Neck: Supple with full range of motion. No jugular venous distension. No bruits. No lymphadenopathy or thyromegaly. Cardiovascular: Regular rate and rhythm without murmurs, rubs, or gallops appreciated. Pulmonary: Clear to auscultation bilaterally without crackles, wheezes, or rhonchi. Normal respiratory effort with no use of accessory muscles. Abdomen: Soft, bowel sounds present, non-tender, non-distended. No hepatosplenomegaly or masses appreciated. Extremities: No clubbing, cyanosis, or edema. Skin: Normal temperature and texture, poor turgor; no rash, ulcers, or subcutaneous nodules appreciated. Neurological: Chronic left sided hemiparesis with intact sensation. No other focal neurological deficits. Psychiatric: Depressed mood and flat affect. Alert and oriented to person and place. Moderate dementia with short-term memory recall deficit. Objective Labs Result Diagrams: 11/14/18 09:15 11/14/18 09:15 Labs: Laboratory Results - last 24 hr 11/13/18 11/13/18 11/13/18 09:15 09:25 17:00 WBC RBC Hgb Hct MCV MCH MCHC RDW Plt Count Neut % (Auto) Lymph % (Auto) Schley % (Auto) Eos % (Auto) Baso % (Auto) Neut # (Auto) Lymph # (Auto) Schley # (Auto) Eos # (Auto) Baso # (Auto) Sodium Potassium Chloride Carbon Dioxide BUN Creatinine Estimated GFR BUN/Creatinine Ratio Glucose Hemoglobin A1c 7.5 H Calcium Magnesium 1.8 Total Bilirubin AST ALT Alkaline Phosphatase Total Protein Albumin Globulin Albumin/Globulin Ratio Urine Color Urine Appearance Urine pH Ur Specific Randolph Urine Protein Urine Glucose (UA) Urine Ketones Urine Occult Blood Urine Nitrate Urine Bilirubin Urine Urobilinogen Ur Leukocyte Esterase Urine RBC Urine WBC Ur Squamous Epith Cells Urine Bacteria Hyaline Casts Ur Culture Indicated? Micro UA Comment Chlamy pneumoniae PCR Not detected Adenovirus (PCR) Not detected B.parapertussis DNA PCR Not detected Coronavirus OC43 (PCR) Not detected Coronavirus HKU1 (PCR) Not detected Coronavirus 229E (PCR) Not detected Coronavirus NL63 (PCR) Not detected Human Metapneumovir PCR Not detected Influenza Type A (PCR) Not detected Influenza Type B (PCR) Not detected M. pneumoniae (PCR) Not detected Parainfluenza 1 (PCR) Not detected Parainfluenza 2 (PCR) Not detected Parainfluenza 3 (PCR) Not detected Parainfluenza 4 (PCR) Not detected RSV (PCR) Not detected Entero/Rhino (PCR) Not detected 11/13/18 11/14/18 11/14/18 20:07 09:15 09:15 WBC 6.8 RBC 3.90 L Hgb 12.0 Hct 34.3 L MCV 88.1 MCH 30.7 MCHC 34.9 RDW 14.1 Plt Count 170 Neut % (Auto) 63.6 Lymph % (Auto) 24.4 L Schley % (Auto) 9.5 Eos % (Auto) 2.0 Baso % (Auto) 0.5 Neut # (Auto) 4300 Lymph # (Auto) 1700 Schley # (Auto) 600 Eos # (Auto) 100 Baso # (Auto) 0 Sodium 139 Potassium 3.7 Chloride 110 H Carbon Dioxide 21 L BUN 16 Creatinine 0.80 Estimated GFR > 60.0 BUN/Creatinine Ratio 20.0 Glucose 86 Hemoglobin A1c Calcium 8.9 Magnesium 1.4 L Total Bilirubin 0.4 AST 53 H ALT 84 H Alkaline Phosphatase 73 Total Protein 5.7 L Albumin 3.2 L Globulin 2.5 Albumin/Globulin Ratio 1.3 Urine Color Yellow Urine Appearance Clear Urine pH 5.0 Ur Specific Randolph 1.020 Urine Protein Negative Urine Glucose (UA) Trace H Urine Ketones Negative Urine Occult Blood Negative Urine Nitrate Negative Urine Bilirubin Negative Urine Urobilinogen 0.2 Ur Leukocyte Esterase Negative Urine RBC 0-1/hpf Urine WBC 0-1/hpf Ur Squamous Epith Cells 0-1 /hpf Urine Bacteria None seen Hyaline Casts 1-5/lpf Ur Culture Indicated? Cult not indicated Micro UA Comment Microscopic normal Chlamy pneumoniae PCR Adenovirus (PCR) B.parapertussis DNA PCR Coronavirus OC43 (PCR) Coronavirus HKU1 (PCR) Coronavirus 229E (PCR) Coronavirus NL63 (PCR) Human Metapneumovir PCR Influenza Type A (PCR) Influenza Type B (PCR) M. pneumoniae (PCR) Parainfluenza 1 (PCR) Parainfluenza 2 (PCR) Parainfluenza 3 (PCR) Parainfluenza 4 (PCR) RSV (PCR) Entero/Rhino (PCR) Discharge Plan Discharge Plan Patient Disposition: SNF Transfer to: [facility] Under care of provider: Flight Software Test EngineerSenior Copywriter: Facility vehicle I certify the postop hospital senior living care is medically necessary on a continuing basis for any conditions for which he/ she received care during this hospitalization.: Yes The receiving facility has agreed to accept transfer and provide medical treatment.: Yes Discharge Med Rec/Prescriptions Prescriptions: New metoclopramide HCl 5 mg Tablet 5 mg PO TID PRN (Reason: Nausea, vomitting, early satiety) Qty: 90 RF: 0 nicotine 7 mg/24 hr Patch 24 Hour 7 mg topical DAILY Qty: 30 RF: 0 Continued mirtazapine 15 mg Tablet 15 mg PO DAILY RF: 0 escitalopram oxalate 10 mg Tablet 10 mg PO DAILY RF: 0 Artificial Tears (PF) 0.1-0.3 % Dropperette 1 drp EYE-BOTH QID RF: 0 clopidogrel 75 mg Tablet 75 mg PO DAILY RF: 0 calcium carbonate [Tums] 200 mg calcium (500 mg) Tablet,Chewable 200 mg PO PRN PRN (Reason: Heartburn) RF: 0 ranitidine HCl 150 mg Capsule 150 mg PO BID RF: 0 glipizide 5 mg Tablet 5 mg PO DAILY RF: 0 Lantus Solostar U-100 Insulin 100 unit/mL (3 mL) Insulin Pen 14 units subcut DAILY RF: 0 cyclobenzaprine 10 mg Tablet 10 mg PO BID PRN (Reason: Muscle Spasm) RF: 0 atorvastatin 80 mg Tablet 80 mg PO BEDTIME RF: 0 sennosides [senna] 8.6 mg Tablet 8.6 mg PO DAILY PRN (Reason: Constipation) RF: 0 acetaminophen 325 mg Tablet 650 mg PO Q4H PRN (Reason: Fever) RF: 0 polyethylene glycol 3350 17 gram Powder In Packet 17 g PO DAILY PRN (Reason: Constipation) RF: 0 dextrose [Glucose Gel] 40 % Gel 15 g PO Q15M PRN (Reason: Hypoglycemia) RF: 0 melatonin 3 mg Tablet 3 mg PO BEDTIME PRN (Reason: Insomnia) RF: 0 carvedilol 3.125 mg Tablet 1.5625 mg PO BID RF: 0 docusate sodium 100 mg Capsule 100 mg PO PRN PRN (Reason: Constipation) RF: 0 ondansetron 4 mg Tablet,Disintegrating 4 mg PO Q4-6H PRN (Reason: Nausea And Vomiting) RF: 0 Maalox Maximum Strength 400-400-40 mg/5 mL Suspension 15 ml PO Q4-6H PRN (Reason: Heartburn) RF: 0 colchicine 0.6 mg Capsule 0.6 mg PO BID RF: 0 ipratropium-albuterol 0.5 mg-3 mg(2.5 mg base)/3 mL Solution For Nebulization 3 ml INHALATION Q4-6H PRN (Reason: Shortness Of Breath) RF: 0 benzonatate 200 mg Capsule 200 mg PO TID PRN (Reason: Cough) RF: 0 magnesium hydroxide [Milk of Magnesia] 400 mg/5 mL Suspension 30 ml PO BEDTIME PRN (Reason: Constipation) RF: 0 bisacodyl 10 mg Suppository 10 mg NH DAILY PRN (Reason: Constipation) RF: 0 Fleet Enema 19-7 gram/118 mL Enema 118 ml NH DAILY PRN (Reason: Constipation) RF: 0 bisacodyl [Dulcolax (bisacodyl)] 5 mg Tablet,Delayed Release (Dr/Ec) 10 mg PO PRN PRN (Reason: Constipation) RF: 0 Changed pantoprazole 40 mg Tablet,Delayed Release (Dr/Ec) 40 mg PO BID Qty: 60 RF: 0 Discontinued meloxicam 15 mg Tablet 15 mg PO DAILY RF: 0 loperamide 2 mg Tablet 4 mg PO Q6HR PRN (Reason: Diarrhea) RF: 0 aspirin [Aspir-81] 81 mg Tablet,Delayed Release (Dr/Ec) 81 mg PO DAILY RF: 0 Combivent Respimat 20-100 mcg/actuation Mist 2 puff INHALATION TID RF: 0 metformin 500 mg Tablet 500 mg PO BID RF: 0 Atrovent HFA 17 mcg/actuation Hfa Aerosol Inhaler 1 puff INHALATION QID RF: 0 budesonide 0.25 mg/2 mL Suspension For Nebulization 0.25 mg INHALATION Q12H PRN (Reason: Shortness Of Breath) RF: 0 Discharge Health Status Brief summary of current health status: Oriented to self/age/birthday and place. 2-person stand-pivot transfers. Q2H reposition in bed. Was evaluated by MEDICAL CENTER REPRESENTATIVE today (see diet comments below). Roberts catheter placed for retention (on 11/13) r/t neurogenic bladder. Dr Gonzalez said she thought patient would likely require a chronic roberts going forward. Precautions: Warrior Provider Discharge Instructions Diet: Diet as Tolerated Diet comment: dysphagia mechanical soft, thin liquids, for comfort,1:1 feeding for safety Discharge Data Attending Provider: Yvette Gonzalez Admit Date/Time: 11/13/18 11:09 Quality VTE Deep Vein Thrombosis/Pulmonary Embolism Present on Admission: No
--- NOTE | 2018-11-14 13:54 | ST.IPIE ---
Care Team Visit Care Team Role Provider Type Abebe Trejo DO Emergency Provider Physician Specialty: Emergency Medicine Address: [address] [place] [address], [id number] Email: [email or web address] Yvette Gonzalez DO Admit Provider Physician Attending Provider Specialty: Internal Medicine Address: [address] [place] [address], [id number] Email: Past Medical History (Last Updated 11/13/18 @ 16:51 by Yvette Gonzalez DO) Abnormal colonoscopy (Acute Medical) Alcoholism in remission (Acute Medical) CVA (cerebral vascular accident) (Acute Medical) Colon polyps (Acute Medical) Dementia (Acute Medical) Diabetes mellitus type 2 in nonobese (Acute Medical) Dysphagia as late effect of cerebrovascular accident (CVA) (Acute Medical) Gout (Acute Medical) Hard of hearing (Acute Medical) Hemiparesis affecting left side as late effect of cerebrovascular accident (CVA) (Acute Medical) Peptic ulcer disease (Acute Medical) Stroke (Acute Medical) TIA (transient ischemic attack) (Acute Medical) Tobacco dependence (Acute Medical) ST IP Initial Evaulation Report DRESS [employer]KER Clinical Swallow Evaluation Start: 11/14/18 12:20 Freq: Status: Active Protocol: Document 11/14/18 12:20 DAYSI (Rec: 11/14/18 12:28 DAYSI [id number]) Clinical Swallow Evaluation Session Time Visit Start Time 10:00 Visit Stop Time 10:30 Total Visit Minutes [address] Gonzalez Reason for Referral Dysphagia Setting Assessment Location Acute Care Visit Type Note Type Initial Evaluation Patient Information Identification Type Name ID Card History Pt is a 73-year-old female with a past medical history significant for multiple and recent (09/06/18) CVA with residual left-sided hemiparesis, dysphagia, and dementia; diabetes mellitus type 2, insulin using, depression, COPD, and peptic ulcer disease who presented for nausea, vomiting, diarrhea , and 1 episode of coffee- ground emesis. The pt experienced a large CVA in September 2018. She has been at [facility] for rehabilitation until this time. Per DRESS CAP MAKER at [facility], the pt' s current diet is Mechanical Soft texture and NTL, and she has been using chin tuck with head turn to left (weak) side during swallow to reduce risk of aspiration. The pt dislikes thickened liquids and, per family report, has lost approximately 10-15 lbs since her CVA. The family has expressed concern of the pt's quality of life. Hospice has been discussed during this hospital stay, and bedside swallow evaluation was ordered to determine risk of aspiration and safest diet for comfort intake. Subjective Observations The pt was lying in bed awake upon DRESS CAP MAKER's arrival. Her participation in conversation was limited but appropriate. She independently recalled using chin tuck with head turn to left side as a compensatory swallow strategy that has been trained at [facility]. The pt was agreeable to oral trials and able to self-feed with setup assistance. Evaluation Liquids Trialed Thin [place] Solids Trialed Puree Mechanical Soft Regular Administration Type Tea Spoon Cup Single Sip Self-Feeding Oral Impairment Mildly Impaired Oral Strategies Upright at 90 degrees Double Swallow Controlled Bite/Sip Size Dementia Strategies Oral Phase Comments Oral Peripheral Exam: Pt has natural dentition in good condition for age. Mild left side facial weakness noted with labial retraction. Mildly reduced lingual, labial and buccal strength observed. Coordination and ROM were WFL, although movement occasionally slow. Adequate hyolaryngeal elevation/ excursion observed via palpation. Oral Phase: Mildly slowed oral prep and mastication noted. When given sariah cracker, the pt sucked on it prior to chewing. When asked if it was difficult to chew, she responded, It's dry. Swallow trigger appears WNL. Pt consumed crushed tablet in applesauce with need for additional applesauce to clear the oral cavity. No abnormal oral residue observed with other trials. Pharyngeal Impairment Moderately Impaired Pharyngeal Strategies Sitting Upright (90 deg) Turn Head Left Chin Tuck Double Swallow Effortful Swallow Small Bites and Sips Pharyngeal Phase Comments Delayed coughing with thin liquids and mixed texture ( diced fruit in juice), particularly when pt did not employ chin tuck with head turned to left side, suggesting pharyngeal residue. This improved but did not completely resolve with effortful and double swallows. The pt required mod- max verbal cues to consistently employ compensatory swallow strategies. No overt s/sx observed with NTL; however, the pt expressed strong dislike and was agreeable only to 2 swallows. No overt s/sx of aspiration noted with applesauce and sariah cracker. Findings Dysphagia Type Mild-Moderate Oropharyngeal Rehabilitation Potential Poor Impressions Pt presents with mild oral and moderate pharyngeal dysphagia secondary to residual weakness from CVA. Swallow safety is improved with NTL vs thin; however, risk of aspiration with thin liquids is reduced with use of compensatory swallow strategies: chin tuck with head turned to left side, effortful swallow, double swallow. Without use of strategies, the pt does exhibit delayed coughing, suggestive of pharyngeal residue. She does require frequent cuing to consistently employ strategies. Oral preparation of solids that are dry and require mastication is extended and effortful. Pt benefits from added moisture and small bites . Compensatory swallow strategies necessary to safely manage mixed textures (e.g., diced fruit in juice). Given the pt's significant dislike of thickened liquids, her reported weight loss, and pt/family's desire to improve the pt's quality of life, mechanical soft texture and thin liquid with strict use of compensatory swallow strategies is recommended. The pt requires 1:1 setup assistance and supervision with cuing of strategies. Straws are not recommended, in order to control bolus size and promote use of compensatory swallow strategies. Meds should be crushed in carrier. Diet Recommendations Liquids Order Thin Diet Order Mechanical Soft Medication Recommendations Crushed in Carrier Additional Dietary Needs Single Sips No Straws 1:1 Supervision 1:1 Assistance Reminders to Use Strategies Aspiration Precautions Recommended Precautions Upright at 90 Degrees Small Bites/Sips Chin Tuck Effortful Swallow Double Swallow Left Head Turn Treatment Plan Placement Recommendations after Snf Facility Discharge Appropriate for Therapy No: Pt transitioning to comfort care
--- NOTE | 2018-11-14 14:03 | CM.DPC ---
DCP Discharge to SNF Per MD, pt is not able to have the Gastric Emptying Study today or tomorrow and per Consult with Dr. Rosado a recommendation of staring Reglan for treatment of symptoms and to d/c on Rees Cath for enlarged bladder and called pt's Dtr/DPOA Estela and updated on status and Dtr agreeable with d/c back to [facility] rehab for now while she is working on LTC plan. Per PT/OT, recommending that pt would benefit from SNF rehab to gain some slight function and weight baring towards better ability to transfer without as much assist. KASSANDRA called [facility] September and updated on pt status and confirmed that they can accept pt back today around 1530. KASSANDRA updated LASTING MACHINE OPERATOR BED and RN and faxed signed med rec and d/c summary to [facility] to review. KASSANDRA called pt's Dtr/DPOA Estela (as pt has dementia and stroke deficits) and Dtr confirms that she is agreeable with return to [facility] although she has concerns in regards to pt's care at [facility] and KASSANDRA provided Vira Greeley contact info at [facility] for Dtr to discuss her concerns. Dtr very appreciative of hospital care and states that she has [facility] scheduled to do assessment on the pt on 11/25/18 for [facility] to determine pt's daily rate and needs towards getting into [facility] in [place] with [facility] on board at that time. Plan: Patient to d/c to [facility] today at 1530 for further rehab before getting into LTC and likely Hospice. ANEESH Delacruz
--- NOTE | 2018-11-14 14:21 | PC.NURSE ---
Addendum entered by Xiomara Villarreal R.N. 11/14/18 15:18: All personal belongings packed and ready to send at transfer. Report called to Kathie at [facility], transfer packet all ready for when transport staff arrives. Original Note: Shift summary: Dozing intermittently, awakens easily to voice/touch. Oriented to self, birthdate and place, follows commands. Denies N/V. Denies pain. Has had 2 small loose stools this shift, incontinent X1 and commode X1. To commode we did a stand-pivot transfer with OT. Patient was evaluated by MATERIAL MOVER today and placed on a soft diet, thin liquids, meds crushed in carrier, 1:1 supervision. Patient declined her lunch. Vitals stable, room air. IV mag-rider infusing now. Plan is to transfer to [facility] at 1530, patient aware of the same. Able to make needs known. Call light in reach, bed alarm on.
--- NOTE | 2018-11-14 15:37 | PC.NURSE ---
Pt awake and alert. 2PA to w/c. Discharged with secured roberts with yellow drainage. Pt discharged to [facility] without issues
--- NOTE | 2018-11-17 10:57 | PC.NURSE ---
Addendum entered by Carina Rowland R.N. 11/21/18 11:34: Late entry: Magnesium Sulfate stope time 11/14/18 1437 Original Note: Late entry: NS stop time 11/14/18 0918
== END 2018-11-14 15:30 ==
LOC: ED 11:04 → AC 11:10
PROVIDERS: Admitting Provider Internal Medicine; Emergency Provider Emergency Medicine; Visit Provider Internal Medicine
DX: K92.0 Hematemesis (principal); R11.2 Nausea with vomiting, unspecified; R19.7 Diarrhea, unspecified; E86.0 Dehydration; N17.9 Acute kidney failure, unspecified; I69.354 Hemiplegia and hemiparesis following cerebral infarction affecting left non-dominant side; I69.391 Dysphagia following cerebral infarction; I69.398 Other sequelae of cerebral infarction; R13.10 Dysphagia, unspecified; F01.50 Vascular dementia, unspecified severity, without behavioral disturbance, psychotic disturbance, mood disturbance, and anxiety; E11.9 Type 2 diabetes mellitus without complications; Z79.4 Long term (current) use of insulin; N31.9 Neuromuscular dysfunction of bladder, unspecified; K21.9 Gastro-esophageal reflux disease without esophagitis; R74.0 Nonspecific elevation of levels of transaminase and lactic acid dehydrogenase [LDH]; J44.9 Chronic obstructive pulmonary disease, unspecified; F32.9 Major depressive disorder, single episode, unspecified; M1A.9XX0 Chronic gout, unspecified, without tophus (tophi)
CPT/HCPCS: 36415; 36591; 74018; 74177; 80053; 81001; 82962; 83036; 83735; 85025; 85610; 85730; 86850; 86900; 86901; 87177; 87507; 87633; 92610; 94760; 96361; 96374; 96375; 97163; 97165; 97530; 99284; G0378; C9113; J2405; Q9967

== ENCOUNTER → 2019-01-12 14:39 | Outpatient (ROUT) | payer OTHER, MEDICARE, MEDICAID, SELFPAY ==
[2018-11-13 12:28] VITALS: BMI 22.8
[2019-01-12 17:41] LABS: Appearance Urine UA CLOUDY; Bilirubin Urine UA NEGATIVE (NEGATIVE); Color Urine UA YELLOW; Glucose Urine UA NEGATIVE (Negative); Ketones Urine UA NEGATIVE (NEGATIVE); Leukocyte Esterase Urine UA 2+ (NEGATIVE); Nitrite Urine UA POSITIVE (Negative); Occult Blood Urine UA 3+ (Negative); Protein Urine UA 2+ (Negative)
[2019-01-12 18:05] LABS: Bacteria Urine Many (>30); Mucus Urine 2+ (Negative); RBC Urine 30-100/HPF (0-5/HPF); Squamous Epithelial Cell Urine 1-5 /HPF (0-5/HPF); Transitional Epi Cells Urine 1-5/HPF (0-5/HPF); WBC Urine >100/HPF (0-5/HPF); pH Urine UA 6.5 (4.5-8.0)
== END ==
PROVIDERS: Visit Provider Internal Medicine
DX: I10 Essential (primary) hypertension (principal); E11.9 Type 2 diabetes mellitus without complications; I65.01 Occlusion and stenosis of right vertebral artery
CPT/HCPCS: 81001; 87077; 87086; 87147; 87186

== ENCOUNTER → 2019-01-24 15:07 | Outpatient (ROUT) | payer OTHER, MEDICARE, MEDICAID, SELFPAY ==
[2018-11-13 12:28] VITALS: BMI 22.8
[2019-01-24 15:17] LABS: Add Manual Diff / Slide Review NO; Basophils Absolute Auto 100 /uL (0-100); Eosinophils Absolute Auto 400 /uL (0-450); Eosinophils Percent Auto 4.1 % (2-4); Hematocrit 36.4 % (36-46); Hemoglobin 12.1 g/dL (12.0-16.0); Lymphocytes Absolute Auto 2600 /uL (1100-4500); Lymphocytes Percent Auto 26.2 % (25-40); Mean Corpuscular HGB Conc 33.2 % (30-36); Mean Corpuscular Hemoglobin 30.8 PG (26-34); Mean Corpuscular Volume 92.8 fL (80-100); Monocytes Absolute Auto 900 /uL (0-900); Monocytes Percent Auto 9.6 % (3-14); Neutrophils Absolute Auto 5800 /uL (1500-7000); Neutrophils Percent Auto 59.1 % (50-75); Platelet Count 321 X10^3/uL (150-400); Red Blood Cell Count 3.92 X10^6/uL (4.0-5.2); Red Cell Distribution Width 13.6 % (11.6-14.8); White Blood Cell Count 9.8 X10^3/uL (4.5-11.0)
[2019-01-24 15:26] LABS: Alanine Aminotransferase 19 IU/L (9-52); Albumin 3.8 g/dL (3.5-5.0); Albumin Globulin Ratio 1.2 (1.0-2.8); Alkaline Phosphatase 81 U/L (38-126); Aspartate Aminotransferase 22 IU/L (14-36); BUN Creatinine Ratio 21.7 (6-22); Bilirubin Total 0.3 mg/dL (0.2-1.3); Blood Urea Nitrogen 13 mg/dL (7-17); Calcium 9.3 mg/dL (8.4-10.2); Carbon Dioxide 23 mmol/L (22-32); Chloride 108 mmol/L (98-107); Estimated Glomerular Filt Rate > 60.0 mL/min (>60); Globulin 3.1 g/dL (1.7-4.1); Glucose 173 mg/dL (80-110); HEMOLYSIS 27 (0-50); Potassium 3.8 mmol/L (3.4-5.1); Sodium 140 mmol/L (137-145); Total Protein 6.9 g/dL (6.3-8.2)
== END ==
PROVIDERS: Visit Provider Family Medicine
DX: Z51.5 Encounter for palliative care (principal)
CPT/HCPCS: 80053; 85025

== ENCOUNTER → 2019-04-10 22:45 | Outpatient (ROUT) | payer MEDICARE, MEDICAID, SELFPAY ==
[2018-11-13 12:28] VITALS: BMI 22.8
[2019-04-10 22:54] LABS: Bilirubin Urine UA NEGATIVE (NEGATIVE); Color Urine UA YELLOW; Glucose Urine UA NEGATIVE (Negative); Ketones Urine UA TRACE (NEGATIVE); Leukocyte Esterase Urine UA 1+ (NEGATIVE); Nitrite Urine UA POSITIVE (Negative); Occult Blood Urine UA 3+ (Negative); Protein Urine UA 2+ (Negative); Specific Gravity Urine UA >=1.030 (1.000-1.035); Urobilinogen Urine UA 0.2 E.U./dL (0.2)
[2019-04-10 22:56] LABS: Appearance Urine UA Cloudy; pH Urine UA 5.5 (4.5-8.0)
[2019-04-10 23:22] LABS: Bacteria Urine Many (>30); RBC Urine 1-5/HPF (0-5/HPF); WBC Urine 10-30/HPF (0-5/HPF)
[2019-04-10 23:24] LABS: Culture Indicated Urine Specimen Cultured
== END ==
PROVIDERS: Visit Provider Internal Medicine
DX: N39.0 Urinary tract infection, site not specified (principal); R53.83 Other fatigue
CPT/HCPCS: 81001; 87077; 87086; 87186

== ENCOUNTER → 2019-05-29 16:53 | Outpatient (ROUT) | payer MEDICARE, MEDICAID, SELFPAY ==
[2018-11-13 12:28] VITALS: BMI 22.8
[2019-05-29 16:58] LABS: Appearance Urine UA CLOUDY; Bilirubin Urine UA NEGATIVE (NEGATIVE); Color Urine UA YELLOW; Glucose Urine UA NEGATIVE (Negative); Ketones Urine UA TRACE (NEGATIVE); Leukocyte Esterase Urine UA 1+ (NEGATIVE); Nitrite Urine UA NEGATIVE (Negative); Occult Blood Urine UA NEGATIVE (Negative); Protein Urine UA TRACE (Negative); Specific Gravity Urine UA >=1.030 (1.000-1.035); Urobilinogen Urine UA 0.2 E.U./dL (0.2)
[2019-05-29 17:05] LABS: Bacteria Urine Many (>30); Culture Indicated Urine Specimen Cultured; Mucus Urine 1+ (Negative); RBC Urine 0-1/HPF (0-5/HPF); Renal Epithelial Cells Urine 1-5/HPF (0-1/HPF); Squamous Epithelial Cell Urine 1-5 /HPF (0-5/HPF); Transitional Epi Cells Urine 5-10/HPF (0-5/HPF); WBC Urine 10-30/HPF (0-5/HPF)
[2019-05-29 22:01] LABS: Appearance Urine UA SL CLOUDY; Bilirubin Urine UA NEGATIVE (NEGATIVE); Color Urine UA YELLOW; Glucose Urine UA NEGATIVE (Negative); Ketones Urine UA TRACE (NEGATIVE); Leukocyte Esterase Urine UA NEGATIVE (NEGATIVE); Nitrite Urine UA NEGATIVE (Negative); Occult Blood Urine UA 2+ (Negative); Protein Urine UA 2+ (Negative); Specific Gravity Urine UA >=1.030 (1.000-1.035); Urobilinogen Urine UA 0.2 E.U./dL (0.2)
[2019-05-29 22:14] LABS: RBC Urine 5-10/HPF (0-5/HPF)
[2019-05-29 22:15] LABS: Amorphous Sediment Urine 2+; Bacteria Urine Occasional (0-1); Squamous Epithelial Cell Urine 1-5 /HPF (0-5/HPF); WBC Urine 1-5/HPF (0-5/HPF)
== END ==
PROVIDERS: Visit Provider Internal Medicine
DX: N39.0 Urinary tract infection, site not specified (principal)
CPT/HCPCS: 81001; 87077; 87086; 87186

== ENCOUNTER → 2019-07-16 14:29 | Outpatient (ROUT) | payer MEDICARE, MEDICAID, SELFPAY ==
[2018-11-13 12:28] VITALS: BMI 22.8
[2019-07-16 15:22] LABS: Clostridium Difficile Tox PCR Negative for C. diff
== END ==
PROVIDERS: Visit Provider Internal Medicine
DX: A04.72 Enterocolitis due to Clostridium difficile, not specified as recurrent (principal)
CPT/HCPCS: 87493

== ENCOUNTER → 2019-10-11 21:58 | Outpatient (ROUT) | payer MEDICARE, MEDICAID, SELFPAY ==
[2018-11-13 12:28] VITALS: BMI 22.8
[2019-10-11 22:00] LABS: RBC Urine None Seen (0-5/HPF)
[2019-10-11 22:03] LABS: Appearance Urine UA CLEAR; Bilirubin Urine UA NEGATIVE (NEGATIVE); Color Urine UA YELLOW; Glucose Urine UA NEGATIVE (Negative); Ketones Urine UA NEGATIVE (NEGATIVE); Leukocyte Esterase Urine UA 1+ (NEGATIVE); Nitrite Urine UA NEGATIVE (Negative); Occult Blood Urine UA NEGATIVE (Negative); Protein Urine UA NEGATIVE (Negative); Specific Gravity Urine UA 1.025 (1.000-1.035); Urobilinogen Urine UA 0.2 E.U./dL (0.2)
[2019-10-11 22:12] LABS: Bacteria Urine Many (>30); Culture Indicated Urine Specimen Cultured; Squamous Epithelial Cell Urine 0-1 /HPF (0-5/HPF); WBC Urine 1-5/HPF (0-5/HPF)
== END ==
PROVIDERS: Visit Provider Internal Medicine
DX: R35.0 Frequency of micturition (principal)
CPT/HCPCS: 81001; 87086